=== PATIENT | female | born 1960 | race Hispanic/Latino ===

== ENCOUNTER 2017-11-21 13:51 | Inpatient (IN) | payer BC ==
--- OUTSIDE RECORDS SUMMARY | 2017-11-21 13:53 | XMS REPORT ---
:1960 [facility] Address [address] [place] [address] Care Team Providers Name Role Phone DR MAINOR PAUL Unavailable Unavailable Problems This patient has no known problems. Allergies, Adverse Reactions, Alerts This patient has no known allergies or adverse reactions. Medications This patient has no known medications. Results Test Description Test Time Test Comments Text Results Atomic Results Result Comments U/S KIDNEY (RENAL) 2017-06-24 09:38:23 RENAL ULTRASOUND with DopplerLocation Code: [id number] HISTORY: UNCONTROLLED HTNCOMPARISON: 06/22/17COMMENT: Real-time sonographic images of the kidneys was performed. Wilson scale,color Doppler, and spectral analysis of the aorta and renal arteries wasperformed.Review the resistive indices of the upper, mid, and lower poles of the rightand left renal arteries were all 1.0 which are elevated and worrisome for renalartery stenosis. CTA may be of further benefit.The right kidney measures 8.3 x 4.0 x 4.0cm. The left kidney measures 8.3 x 4.2x 3.9cm. Cortical thickness is somewhat thin on each side. The kidneys areslightly increased in echogenicity. Tiny punctate echogenic foci may representnonobstructing stones without hydronephrosis. Again noted is an 11 x 10 mmechogenic lesion in the inferior pole the left kidney which may represent anangiomyolipoma.Small amount of ascites again seen. Sludge noted within the gallbladder.The bladder is decompressed.IMPRESSION: 1. Findings worrisome for bilateral renal artery stenosis. Somewhat echogenickidneys with tiny nonobstructing stones and possible small angiomyolipomainvolving the inferior pole the left kidney.2. Ascites.3. Mild sludge in the gallbladder. US KIDNEY (RENAL) 2017-06-22 15:39:41 Addendum:Note is made of some free fluid in the right and left upper quadrants of theabdomen. MAMMOGRAM SCREENING CAD 2016-12-03 09:39:53 Exam: Bilateral digital INC G0202 mammogramLocation: [id number]: Routine screening.Comparison: Priors unavailableFINDINGS:No dominant masses or clustered microcalcifications are identified. The breastparenchyma is heterogeneously dense. There are diffuse benign vascular andsecretory calcifications seen. R2 computer aided detection was utilized as an aid for interpreting theseimages.IMPRESSION:1. ACR BI-RADS 2. Benign findings. Recommendation: Routine yearly mammographic follow-up recommended. [employer] AccreditationFDA CertifiedBoard Certified Radiologists(ARRT) Registered Mammography TechnologistsNOTE: 1. A negative report should not delay biopsy if a dominant or clinicallysuspicious mass is present. 4 to 8% of cancers are not identified by x-ray.2. A negative report may reinforce clinical impression.3. Adenosis and dense breasts may obscure an underlying neoplasm.4. False positive results average 6 to 10%.5. Complete assessment of BI-RADS wording:A. Category 0=Needs Additional Imaging Evaluation.B. Category 1=Negative mammogram.C. Category 2=Benign Finding.D. Category 3=Probably Benign Finding - Short Interval Followup Suggested.E. Category 4=Suspicious Abnormality.F. Category 5=Highly Suggestive Of Malignancy.G. Category 6=Known Malignancy. BONE DENSITY 2016-12-03 09:37:50 Bone mineral densityLocation code: [id number] history: Estrogen deficiency, osteoporosis screeningComments: Bone densitometry was performed using the [email or web address] Discovery W DXAscanner.AP spine (L1-L4)BMD: 0.849 g /ccT score: -1.8Z score: -0.7WHO classification: OsteopeniaLeft femoral neck:BMD: 0.551 g /ccT score: -2.7Z score: -1.7WHO classification: OsteoporosisLeft total hipBMD: 0.651 g /ccT score: -2.3Z score: -1.5WHO classification: OsteopeniaRight femoral neckBMD: 0.506 g /ccT score: -3.1Z score: -2.0WHO classification: OsteoporosisRight total hipBMD: 0.642 g /ccT score: -2.4Z score: -1.6WHO classification: OsteopeniaImpression:1. Osteoporosis of the bilateral femoral necks.2. Osteopenia of the lumbar spine.
--- OUTSIDE RECORDS SUMMARY | 2017-11-21 13:53 | XMS REPORT | Clinical Summary ---
:1960 Author Organization [facility] Address [address] [place] [address] Care Team Providers Name Role Phone Perry Dudley DO Primary Care Provider Allergies Active Allergy Reactions Severity Noted Date Comments Penicillins Itching 01/05/2017 Current Medications Prescription Sig. Disp. Refills Start Date End Date Status calcium acetate (PHOSLO) Take 667 mg by Active 667 mg tablet mouth. enalapril (VASOTEC) 5 MG Take 5 mg by mouth. 02/13/2016 Active tablet hydrALAZINE (APRESOLINE) Take 50 mg by Active 50 MG tablet mouth. insulin NPH and regular Inject 10 Units 02/13/2016 Active human (HumuLIN 70/30) 100 under the skin. unit/mL (70-30) injection pantoprazole (PROTONIX) Take 40 mg by 02/13/2016 Active 40 MG EC tablet mouth. risperiDONE (RisperDAL) Take 0.5 mg by 02/13/2016 Active 0.5 MG tablet mouth. risperiDONE (RisperDAL) 2 Take 2 mg by mouth. 02/13/2016 Active MG tablet sertraline (ZOLOFT) 100 Take 100 mg by 02/13/2016 Active MG tablet mouth. simethicone (MYLICON) 80 Chew 80 mg. 02/13/2016 Active MG chewable tablet doxazosin (CARDURA) 1 MG Take 1 mg by mouth Active tablet nightly. METOPROLOL Take by mouth. Active ABAD-HYDROCHLOROTHIAZ ORAL clonIDINE (CATAPRES-TTS) Place 1 patch on Active 0.1 mg/24 hr the skin once a week. levoFLOXacin (QUIXIN) 0.5 1 drop every 4 Active % ophthalmic solution (four) hours. apixaban (ELIQUIS) 2.5 mg Take by mouth 2 Active tablet (two) times a day. sodium polystyrene Take 15 g by mouth Active sulfonate (KAYEXALATE) once. suspension SODIUM POLYSTYRENE Take by mouth. Active SULFONATE (KIONEX ORAL) OMEPRAZOLE ORAL Take 1 tablet by Active mouth daily. AMLODIPINE BESYLATE Take by mouth. Active (AMLODIPINE ORAL) Active Problems Problem Noted Date ESRD (end stage renal disease) 2014 MWF 01/05/2017 Last Assessment & Plan: N. new dialysis access planning dialyzing thru L TDC. Patient with access needs. We gave the patient our kidney failure information sheet and discussed with them in general transplant vs. PD vs. hemodialysis. We discussed catheters vs. grafts vs. fistula s and used the informational posters to better explain the differences. We explained our general preference for fistulas because of decreased infections and increased longevity. We discussed operative complications including bleeding, thrombosis, failure of the access, swelling , steal syndrome, and need for additional procedures. Plan for bilateral venograms. Vein mapping reviewed has options of both arms. DM (diabetes mellitus) 01/05/2017 HTN (hypertension) 01/05/2017 Encounters Date Type Specialty Care Team Description 02/04/2017 Hospital Encounter Radiology Kiki Lynch No Sabrina Barboza MD 01/05/2017 Office Visit Cardiovascular Kiki Lynch ESRD (end stage renal MD Jabari disease) (Primary Dx) 01/05/2017 Orders Only Cardiovascular Kiki Lynch MD after 11/20/2016 Family History Medical History Relation Name Comments Diabetes Brother Hypertension Brother Diabetes Mother Hypertension Mother Diabetes Sister Relation Name Status Comments Brother Alive Father Mother Alive Sister Social History Tobacco Use Types Packs/Day Years Used Date Never Smoker Alcohol Use Drinks/Week oz/Week Comments No Sex Assigned at Date Recorded Not on file Last Filed Vital Signs Vital Sign Reading Time Taken Blood Pressure 196/90 01/05/2017 11:47 AM CDT Pulse 79 01/05/2017 11:47 AM CDT Temperature 36.6 C (97.8 F) 01/05/2017 11:45 AM CDT Respiratory Rate 16 01/05/2017 11:45 AM CDT Oxygen Saturation - - Inhaled Oxygen Concentration - - Weight 64 kg (141 lb) 01/05/2017 11:45 AM CDT Height 147.3 cm (4' 10") 01/05/2017 11:45 AM CDT Body Mass Index 29.47 01/05/2017 11:45 AM CDT Plan of Treatment Health Maintenance Due Date Last Done Comments FOOT EXAM 1971 OPHTHALMOLOGY EXAM 1971 URINE MICROALBUMIN 1971 PAP SMEAR 1982 COLONOSCOPY 2011 MAMMOGRAM 2011 INFLUENZA VACCINE 03/16/2018 Results PT and PTT (01/05/2017 1:23 PM) Component Value Ref Range PTT 30 22 - 34 sec Comment: This test has not been validated for monitoring unfractionated heparin therapy. For testing that is validated for this type of therapy, please refer to the Heparin Anti-Xa assay (test code 59797). For additional information, please refer to http://education.Bonfire.com/faq/FTQ533 (This link is being provided for informational/educational purposes only.) INR 1.0 Comment: Reference Range 0.9-1.1 Moderate-intensity Warfarin Therapy 2.0-3.0 Higher-intensity Warfarin Therapy 3.0-4.0 Prothrombin time 10.8 9.0 - 11.5 sec Specimen Performing Laboratory [facility] Narrative FASTING: UNKNOWN CBC with platelet and differential (01/05/2017 1:23 PM) Component Value Ref Range WBC 9.2 3.8 - 10.8 Thousand/uL RBC 4.01 3.80 - 5.10 Million/uL HGB 11.7 11.7 - 15.5 g/dL HCT 37.1 35.0 - 45.0 % MCV 92.5 80.0 - 100.0 fL MCH 29.2 27.0 - 33.0 pg MCHC 31.6 (L) 32.0 - 36.0 g/dL RDW 17.1 (H) 11.0 - 15.0 % Platelet count 267 140 - 400 Thousand/uL MPV 10.0 7.5 - 12.5 fL Neutrophils, absolute 6,955 1,500 - 7,800 cells/uL Lymphocytes, absolute 1,490 850 - 3,900 cells/uL Monocytes, absolute 506 200 - 950 cells/uL Eosinophils, absolute 156 15 - 500 cells/uL Basophils, absolute 92 0 - 200 cells/uL Neutrophils 75.6 % Lymphocytes 16.2 % Monocytes 5.5 % Eosinophils 1.7 % Basophils + RC 1.0 % Specimen Performing Laboratory [facility] Narrative FASTING: UNKNOWN Basic metabolic panel (01/05/2017 1:23 PM) Component Value Ref Range Glucose 285 (H) 65 - 99 mg/dL Comment: For someone without known diabetes, a glucose value >125 mg/dL indicates that they may have diabetes and this should be confirmed with a follow-up test. Fasting reference interval BUN, whole blood 32 (H) 7 - 25 mg/dL Creatinine 4.21 (H) 0.50 - 1.05 mg/dL Comment: For patients >49 years of age, the reference limit for Creatinine is approximately 13% higher for people identified as -[place]. EGFR Non-Afr. [place] 11 (L) > OR=60 mL/min/1.73m2 EGFR 13 (L) > OR=60 mL/min/1.73m2 BUN/creatinine ratio 8 6 - 22 (calc) Sodium 136 135 - 146 mmol/L Potassium 5.0 3.5 - 5.3 mmol/L Chloride 93 (L) 98 - 110 mmol/L CO2 32 (H) 20 - 31 mmol/L Calcium 9.3 8.6 - 10.4 mg/dL Specimen Performing Laboratory [facility] Narrative FASTING: UNKNOWN PV vein mapping upper extremity (01/05/2017 11:47 AM) Specimen Performing Laboratory [facility] [address] [place] [address] Narrative [facility] Upper Extremity Venous Duplex Report [id number] [place], [place] Pat.Name:UZMA FABIAN Pat.ID:[id number] .Date: 01/05/2017 Refer.MD:KIKI LYNCH MD Exam Time: 10:48:00 AM Study Type:UE Venous DOBAge:1960,56YSex: FEMALE Sonogrphr: Carmel Aranda RN, RVT TapeVol: EC, CPT - 4: G0365 Echo Event ID:[id number] Order ID:[id number] Reason for Study:Bilateral upper extremity vein mapping. Pt is right handed. Currently has left tunneled dialysis catheter. Race:Z SUMMARY: DUPLEX SCAN OBSERVATIONS Right Left IJPatent Small, Patent SubclavianPatent Patent AxillaryPatent Not seen-TDC BrachialPatent Patent Diameter Cephalic, arm Patent Patent Cephalic, forearm Patent Patent Basilic, armPatent Patent Basilic, forearm Patent Patent Brachial artery Pressure 193/28644/95 PSV cm/sec 75960 Radial artery PSV cm/sec 8698 Ulnar artery PSV cm/sec 8779 RIGHT:There is normal compressibility and no evidence of echogenic material noted within the lumen of the visualized veins. The basilic vein joins the brachial vein just above the mid upper arm. Colorflow and Doppler signals are normal. The andrea of the radial and ulnar arteries arebrightly echogenic. There are two areas noted in the thyroid gland; one contains soft echoes and measures 0.62 x 0.79 cm and the second 0.76 x 0.80 cm. LEFT: There is normal compressibility and no evidence of echogenic material noted within the lumen of the visualized veins, however, the internal jugular vein is small in caliber which may suggest prior DVT. The axillary vein is not seen due to presence of TDC with dressing. Colorflow and Doppler signals are normal. The andrea of the radial and ulnar arteries arebrightly echogenic. PHYSICIAN INTERPRETATION 1.No evidence of venous thrombosis, bilateral upper extremities, however, the left internal jugular vein is small in caliber. 2.The left axillary vein is not seen due to TDC with dressing. 3.The basilic vein joins the brachial vein just above the mid upper arm, bilaterally. 4.The andrea of the radial and ulnar arteries arebrightly echogenic, bilaterally. 5.There are two areas noted in the right lobe of the thyroid; one contains soft echoes and measures 0.62 x 0.79 cm and the second 0.76 x 0.80 cm. 6.See diagram for vein measurements. MEASUREMENTS: UEVEINS Left Cephalic Forearm Mid Cephalic Forear 0.2 cm Right Cephalic Forearm Mid Cephalic Forear0.23 cm Left Cephalic Upper Arm Prox Cephalic Upper 0.34 cm Right Cephalic Upper Arm Prox Cephalic Upper 0.33 cm Left Cephalic Antecubital Cephalic Antecu0.51 cm Right Cephalic Antecubital Cephalic Antecu0.36 cm Left Cephalic Forearm Prox Cephalic Forear0.25 cm Right Cephalic Forearm Prox Cephalic Forear0.22 cm Left Radial Artery Radial Artery A 0.2 cm Right Radial Artery Radial Artery A0.21 cm Left Median Antecubital Median Antecubi0.22 cm Right Median Antecubital Median Antecubi0.23 cm Left Basilic Antecubital Basilic Antecub0.21 cm Right Basilic Antecubital Fossa Basilic Antecub0.23 cm Left Basilic Forearm Prox Basilic Forearm0.17 cm Right Basilic Forearm Prox Basilic Forearm0.15 cm Left Cephalic Wrist Cephalic Wrist 0.19 cm Right Cephalic Wrist Cephalic Wrist 0.18 cm Left Basilic Upper Arm Mid Basilic Upper A 0.3 cm Right Basilic Upper Arm Mid Basilic Upper A0.32 cm Left Cephalic Upper Arm Mid Cephalic Upper 0.32 cm Right Cephalic Upper Arm Mid Cephalic Upper 0.37 cm Left Cephalic Upper Arm Dist Cephalic Upper 0.37 cm Right Cephalic Upper Arm Dist Cephalic Upper 0.36 cm Left Basilic Upper Arm Dist Basilic Upper A0.27 cm Right Basilic Upper Arm Dist Basilic Upper A0.29 cm Left Ulnar Artery Ulnar Artery AP0.16 cm Right Ulnar Artery Ulnar Artery AP0.18 cm Left Basilic Wrist Basilic Wrist A0.13 cm Right Basilic Wrist Basilic Wrist A0.12 cm Left Brachial Artery Brachial Artery 0.434 cm Right Brachial Artery Brachial Artery 0.475 cm Left Basilic Forearm Mid Basilic Forearm0.14 cm Right Basilic Forearm Mid Basilic Forearm0.15 cm Left Basilic Upper Arm Prox Basilic Upper A0.36 cm Right Basilic Upper Arm Prox Basilic Upper A0.28 cm Right Brachial Vein Antecube Brachial Vein A 2.3 cm Left Brachial Vein Antecube Brachial Vein A 2.2 cm GRAFT Radial A Dist Radial A Dist P86 cm/s Ulnar A Dist 1 Ulnar A Dist 1 79 cm/s Ulnar Dist Ulnar Dist PSV87 cm/s Brachial A Dist Brachial A Dist92 cm/s Signed 01/06/2017 07:59 AM Dusty López MD, RPVI Procedure Note Interface, Radiology Results In - 01/06/2017 7:59 AM CDT [facility] Upper Extremity Venous Duplex Report [id number] [place] [address] Pat.Name: UZMA FABIAN Pat.ID: [id number] .Date: 01/05/2017 Refer.MD: KIKI LYNCH MD Exam Time: 10:48:00 AM Study Type:UE Venous Age: 13 1960,56Y Sex: FEMALE Sonogrphr: Carmel Aranda RN, RVT Tape Vol: EC, CPT - 4: G0365 Echo Event ID:[id number] Order ID: [id number] Reason for Study:Bilateral upper extremity vein mapping. Pt is right handed. Currently has left tunneled dialysis catheter. Race: Z SUMMARY: DUPLEX SCAN OBSERVATIONS Right Left IJ Patent Small, Patent Subclavian Patent Patent Axillary Patent Not seen-TDC Brachial Patent Patent Diameter Cephalic, arm Patent Patent Cephalic, forearm Patent Patent Basilic, arm Patent Patent Basilic, forearm Patent Patent Brachial artery Pressure 193/95 201/95 PSV cm/sec 92 103 Radial artery PSV cm/sec 86 98 Ulnar artery PSV cm/sec 87 79 RIGHT: There is normal compressibility and no evidence of echogenic material noted within the lumen of the visualized veins. The basilic vein joins the brachial vein just above the mid upper arm. Colorflow and Doppler signals are normal. The andrea of the radial and ulnar arteries are brightly echogenic. There are two areas noted in the thyroid gland; one contains soft echoes and measures 0.62 x 0.79 cm and the second 0.76 x 0.80 cm. LEFT: There is normal compressibility and no evidence of echogenic material noted within the lumen of the visualized veins, however, the internal jugular vein is small in caliber which may suggest prior DVT. The axillary vein is not seen due to presence of TDC with dressing. Colorflow and Doppler signals are normal. The andrea of the radial and ulnar arteries are brightly echogenic. PHYSICIAN INTERPRETATION 1. No evidence of venous thrombosis, bilateral upper extremities, however, the left internal jugular vein is small in caliber. 2. The left axillary vein is not seen due to TDC with dressing. 3. The basilic vein joins the brachial vein just above the mid upper arm, bilaterally. 4. The andrea of the radial and ulnar arteries are brightly echogenic, bilaterally. 5. There are two areas noted in the right lobe of the thyroid; one contains soft echoes and measures 0.62 x 0.79 cm and the second 0.76 x 0.80 cm. 6. See diagram for vein measurements. MEASUREMENTS: UEVEINS Left Cephalic Forearm Mid Cephalic Forear 0.2 cm Right Cephalic Forearm Mid Cephalic Forear 0.23 cm Left Cephalic Upper Arm Prox Cephalic Upper 0.34 cm Right Cephalic Upper Arm Prox Cephalic Upper 0.33 cm Left Cephalic Antecubital Cephalic Antecu 0.51 cm Right Cephalic Antecubital Cephalic Antecu 0.36 cm Left Cephalic Forearm Prox Cephalic Forear 0.25 cm Right Cephalic Forearm Prox Cephalic Forear 0.22 cm Left Radial Artery Radial Artery A 0.2 cm Right Radial Artery Radial Artery A 0.21 cm Left Median Antecubital Median Antecubi 0.22 cm Right Median Antecubital Median Antecubi 0.23 cm Left Basilic Antecubital Basilic Antecub 0.21 cm Right Basilic Antecubital Fossa Basilic Antecub 0.23 cm Left Basilic Forearm Prox Basilic Forearm 0.17 cm Right Basilic Forearm Prox Basilic Forearm 0.15 cm Left Cephalic Wrist Cephalic Wrist 0.19 cm Right Cephalic Wrist Cephalic Wrist 0.18 cm Left Basilic Upper Arm Mid Basilic Upper A 0.3 cm Right Basilic Upper Arm Mid Basilic Upper A 0.32 cm Left Cephalic Upper Arm Mid Cephalic Upper 0.32 cm Right Cephalic Upper Arm Mid Cephalic Upper 0.37 cm Left Cephalic Upper Arm Dist Cephalic Upper 0.37 cm Right Cephalic Upper Arm Dist Cephalic Upper 0.36 cm Left Basilic Upper Arm Dist Basilic Upper A 0.27 cm Right Basilic Upper Arm Dist Basilic Upper A 0.29 cm Left Ulnar Artery Ulnar Artery AP 0.16 cm Right Ulnar Artery Ulnar Artery AP 0.18 cm Left Basilic Wrist Basilic Wrist A 0.13 cm Right Basilic Wrist Basilic Wrist A 0.12 cm Left Brachial Artery Brachial Artery 0.434 cm Right Brachial Artery Brachial Artery 0.475 cm Left Basilic Forearm Mid Basilic Forearm 0.14 cm Right Basilic Forearm Mid Basilic Forearm 0.15 cm Left Basilic Upper Arm Prox Basilic Upper A 0.36 cm Right Basilic Upper Arm Prox Basilic Upper A 0.28 cm Right Brachial Vein Antecube Brachial Vein A 2.3 cm Left Brachial Vein Antecube Brachial Vein A 2.2 cm GRAFT Radial A Dist Radial A Dist P 86 cm/s Ulnar A Dist 1 Ulnar A Dist 1 79 cm/s Ulnar Dist Ulnar Dist PSV 87 cm/s Brachial A Dist Brachial A Dist 92 cm/s Signed 01/06/2017 07:59 AM Dusty López MD, RPVI after 11/20/2016 Insurance Payer Benefit Plan / Group Subscriber ID Type Phone Address [employer]BS EXCHANGE BLUE ADVANTAGE HMO EXCH xxxxxxxxxxxx Exchange CAROLYN Personal/Famil Self 1960 Home: [address] [phone] [place] [address]
[2017-11-21 15:19] LABS: Absolute Lymphocytes (CBC) 0.7 K/uL (0.7-4.9); Absolute Monocytes 0.7 K/uL (0.1-1.3); Absolute Neutrophil 25.1 K/uL (1.8-8.0); Basophils % 0.3 % (0-1.3); Lymphocytes % 2.8 % (15.3-44.8); MCH 27.6 pg (27.0-35.0); MCV 87.1 fL (80-100); MPV 7.5 fL (7.6-11.3); Monocytes % 2.8 % (3.3-12.3); RBC Red Blood Cell Count 4.94 M/uL (3.86-4.86)
[2017-11-21 15:30] LABS: Potassium 5.2 mEq/L (3.6-5.0)
[2017-11-21] MEDS ORDERED: ONDANSETRON 4 MG/2 ML VIAL ONE ×2 (15:34→18:29)
[2017-11-21] MEDS ORDERED: NA CHLORIDE 0.9% 250 ML ONE (15:35)
[2017-11-21 15:36] LABS: Albumin 3.5 g/dL (3.2-5.5); Bilirubin Direct 0.3 mg/dL (0-0.2); Protein, Total 8.5 g/dL (6.0-8.3)
[2017-11-21 15:48] LABS: Platelet Estimate ADEQ; Platelets, Giant PRESENT
[2017-11-21 15:49] LABS: Blood Morphology Comment NOT SEEN (NOT SEEN)
--- NOTE | 2017-11-21 17:42 | RAD REPORT ---
EXAM DESCRIPTION: CT - Abdomen Pelvis Wo Contrast - 11/21/2017 5:14 pm CLINICAL HISTORY: Abdominal pain with vomiting for 2 days COMPARISON: August 2017 TECHNIQUE: Computed axial tomography of the abdomen and pelvis was obtained. IV was not requested. O ral contrast was given. Coronal reconstructions performed. All CT scans are performed using dose optimization technique as appropriate and may include automated exposure control or mA/KV adjustment according to patient size. FINDINGS: The evaluation of solid organs and vessels is limited secondary to the lack of contrast a dministration. The liver, spleen, pancreas, and adrenals appear grossly normal. Renal arterial calcifications are pr esent. A small hemorrhagic/proteinaceous cyst present within the left kidney. Gallbladder sludge is present. The gallbladder wall is thickened. The gallbladder is mildly distended . The colonic wall is mildly thickened. . There is no evidence of diverticulitis. A small to moderate amount of ascites is present. IMPRESSION: Small to moderate amount of ascites Mild colonic wall thickening could be secondary to hypoalbuminemia or cholecystitis Gallbladder sludge. The gallbladder is mildly distended. Gallbladder wall thickening may be secondary to hypoalbuminemia or cholecystitis
--- NOTE | 2017-11-21 18:01 | EDPHYS ---
Physician Documentation [facility] Name: Jessica Roca Age: 57 yrs Sex: Female : 1960 Arrival Date: 11/21/2017 Time: 13:53 Bed 7 Private MD: ED Physician Nick Knox HPI: 11/21 16:36 This 57 yrs old Female presents to ER via Wheelchair with complaints of rn nausea/vomiting/diarrhea. 16:36 The patient presents to the emergency department with nausea, vomiting, diarrhea. rn Onset: The symptoms/episode began/occurred 3 day(s) ago. Possible causes: unknown. Severity of symptoms: At their worst the symptoms were moderate in the emergency department the symptoms are unchanged. The patient has not experienced similar symptoms in the past. Reports nausea/vomiting/diarrhea, mild left sided abd pain, for 3 days, no blood or dark stool, no fever, last dialysis 2 days ago. . Historical: - Allergies: 14:17 PENICILLINS; ph - Home Meds: 14:17 amlodipine 10 mg tab 1 tab once daily [Active]; calcium acetate 667 mg Oral cap ph [Active]; carvedilol 25 mg Oral tab 1 tab 2 times per day [Active]; clonidine HCl 0.1 mg Oral tab 2 tabs 3 times per day [Active]; doxazosin 2 mg Oral tab 1 tab once daily [Active]; hydralazine 25 mg Oral tab TID [Active]; lisinopril 40 mg Oral tab 1 tab once daily [Active]; losartan 50 mg Oral tab 1 tab once daily [Active]; Sensipar Oral [Active]; sertraline 100 mg Oral tab 1 tab once daily [Active]; - PMHx: 14:17 Depression; Diabetes - IDDM; hemodialysis; Hypertension; Renal Disease; ph - Immunization history:: Adult Immunizations unknown. - Social history:: Smoking status: Patient/guardian denies using tobacco. - Family history:: not pertinent. - Hospitalizations: : No recent hospitalization is reported. ROS: 16:36 Constitutional: Negative for fever, chills, and weight loss, Eyes: Negative for injury, rn pain, redness, and discharge, Neck: Negative for injury, pain, and swelling, Cardiovascular: Negative for chest pain, palpitations, and edema, Respiratory: Negative for shortness of breath, cough, wheezing, and pleuritic chest pain, Abdomen/GI: Negative for constipation Back: Negative for injury and pain, MS/Extremity: Negative for injury and deformity, Skin: Negative for injury, rash, and discoloration, Neuro: Negative for headache, weakness, numbness, tingling, and seizure. Exam: 16:36 Constitutional: This is a well developed, well nourished patient who is awake, alert, rn and in no acute distress. Head/Face: Normocephalic, atraumatic. Eyes: Pupils equal round and reactive to light, extra-ocular motions intact. Lids and lashes normal. Conjunctiva and sclera are non-icteric and not injected. Cornea within normal limits. Periorbital areas with no swelling, redness, or edema. ENT: dry MM Neck: Trachea midline, no thyromegaly or masses palpated, and no cervical lymphadenopathy. Supple, full range of motion without nuchal rigidity, or vertebral point tenderness. No Meningismus. Cardiovascular: tachycardic, regular, no murmur Respiratory: Lungs have equal breath sounds bilaterally, clear to auscultation and percussion. No rales, rhonchi or wheezes noted. No increased work of breathing, no retractions or nasal flaring. Abdomen/GI: soft, mild left upper and lower abd tenderness, + epigastric tenderness, no rebound MS/ Extremity: Pulses equal, no cyanosis. Neurovascular intact. Full, normal range of motion. Equal circumference. Neuro: Awake and alert, GCS 15, oriented to person, place, time, and situation. Cranial nerves II-XII grossly intact. Motor strength 5/5 in all extremities. Sensory grossly intact. Cerebellar exam normal. Normal gait. Vital Signs: 14:15 BP 143 / 67; Pulse 101; Resp 18; Temp 98.4; Pulse Ox 99% on R/A; ph 15:00 BP 148 / 65; Pulse 100; Resp 17; Pulse Ox 100% on R/A; hb 16:22 BP 155 / 62; Pulse 103; Resp 18; Pulse Ox 99% on R/A; hb 17:15 BP 156 / 66; Pulse 100; Resp 16; Pulse Ox 100% on R/A; hb 18:15 BP 152 / 68; Pulse 98; Resp 15; Pulse Ox 100% on R/A; hb 18:59 BP 150 / 68; Pulse 105; Resp 16; Pulse Ox 95% ; hb 19:53 BP 136 / 81; Pulse 109; Resp 16; Pulse Ox 95% ; bp MDM: 14:19 Patient medically screened. rn 17:57 ED course: Pt with clinical signs of colitis, more left sided symptoms, CT shows rn colitis and possible gallbladder wall thickening, notified Dr. Kennedy for admission, abx started, and consulted Dr. Page \T\ [id number] regarding patient's condition. Pt NPO. Gallbladder wall thickening may be due to ascites or preexisting liver problems. Will evaluate. . 11/21 14:33 Order name: Basic Metabolic Panel; Complete Time: 15:49 rn 11/21 14:33 Order name: CBC with Diff; Complete Time: 15:49 rn 11/21 14:33 Order name: Hepatic Function; Complete Time: 15:49 rn 11/21 14:33 Order name: Lipase; Complete Time: 15:49 rn 11/21 15:48 Order name: Manual Differential; Complete Time: 15:49 EDPA 11/21 15:28 Order name: Abdomen EDPA 11/21 18:12 Order name: CBC without Diff EDPA 11/21 18:12 Order name: Comprehensive Metabolic Panel EDPA 11/21 18:12 Order name: Chest Single View EDPA 11/21 18:12 Order name: Chest Single View EDPA 11/21 18:13 Order name: Clostridium difficile DNA EDPA 11/21 14:33 Order name: IV Saline Lock; Complete Time: 15:23 rn 11/21 14:33 Order name: Labs collected and sent; Complete Time: 15:23 rn 11/21 18:03 Order name: CONS Physician Consult EDPA 11/21 18:03 Order name: NPO EDPA Administered Medications: 15:15 Drug: Zofran 4 mg Route: IVP; Site: right antecubital; hb 16:00 Follow up: Response: No adverse reaction hb 15:15 Drug: NS 0.9% 250 ml Route: IV; Rate: 1 bolus; Site: right antecubital; hb 15:45 Follow up: Response: No adverse reaction; IV Status: Completed infusion hb 18:17 Drug: Zofran 4 mg Route: IVP; Site: right antecubital; hb 18:32 Follow up: Response: No adverse reaction hb 18:18 Drug: Rocephin - (cefTRIAXone) 1 grams Route: IVPB; Infused Over: 30 mins; Site: right hb antecubital; 18:32 Follow up: Response: No adverse reaction; IV Status: Completed infusion hb 18:18 Drug: Flagyl 500 mg Volume: 100 ml; Route: IVPB; Rate: 200 ml/hr; Infused Over: 30 hb mins; Site: right antecubital; 19:07 Follow up: IV Status: Completed infusion bp Disposition: 11/21/17 18:00 Hospitalization ordered by Del Kennedy for Inpatient Admission. Preliminary diagnosis are End stage renal disease, Ascites, Colitis, Possible cholecystitis. - Bed requested for Telemetry/MedSurg (Inpatient). - Status is Inpatient Admission. bp - Condition is Stable. - Problem is new. - Symptoms have improved. UTI on Admission? No Signatures: Dispatcher [employer] EDMS Krysta Madera Roman, MD MD rn Hall, Patricia, RN RN Daja Jackson RN RN vEelio Hinton RN RN bp Corrections: (The following items were deleted from the chart) 15:28 14:34 Abdomen Pelvis W Con+CT.RAD.BRZ ordered. EDMS EDMS 15:48 15:27 CBC Smear Scan ordered. EDMS EDMS
--- NOTE | 2017-11-21 18:01 | ER ---
Nurse's Notes [facility] Name: Jessica Roca Age: 57 yrs Sex: Female : 1960 Arrival Date: 11/21/2017 Time: 13:53 Bed 7 Private MD: Diagnosis: End stage renal disease;Ascites;Colitis;Possible cholecystitis Presentation: 11/21 14:13 Presenting complaint: N/V/D with abdominal pain since Wednesday. Transition of care: ph patient was not received from another setting of care. Onset of symptoms was November 21, 2017. Care prior to arrival: None. 14:13 Method Of Arrival: Wheelchair ph 14:13 Acuity: MELL 3 ph Triage Assessment: 19:00 General: Appears distressed, uncomfortable, Behavior is appropriate for age. Pain: bp Complains of pain in abdomen. Historical: - Allergies: 14:17 PENICILLINS; ph - Home Meds: 14:17 amlodipine 10 mg tab 1 tab once daily [Active]; calcium acetate 667 mg Oral cap ph [Active]; carvedilol 25 mg Oral tab 1 tab 2 times per day [Active]; clonidine HCl 0.1 mg Oral tab 2 tabs 3 times per day [Active]; doxazosin 2 mg Oral tab 1 tab once daily [Active]; hydralazine 25 mg Oral tab TID [Active]; lisinopril 40 mg Oral tab 1 tab once daily [Active]; losartan 50 mg Oral tab 1 tab once daily [Active]; Sensipar Oral [Active]; sertraline 100 mg Oral tab 1 tab once daily [Active]; - PMHx: 14:17 Depression; Diabetes - IDDM; hemodialysis; Hypertension; Renal Disease; ph - Immunization history:: Adult Immunizations unknown. - Social history:: Smoking status: Patient/guardian denies using tobacco. - Family history:: not pertinent. - Hospitalizations: : No recent hospitalization is reported. Screenin:00 Abuse screen: Denies threats or abuse. Denies injuries from another. Nutritional hb screening: No deficits noted. Tuberculosis screening: No symptoms or risk factors identified. Fall Risk Total Levy Fall Scale indicates Low Risk Score (25-44 pts). Fall prevention measures have been instituted. Side Rails Up X 2 Frequent Obs/Assesments occuring Family Present and informed to notify staff if they need to leave bedside As available Patient and Family Educated on Fall Prevention Program and strategies. Assessment: 14:48 Reassessment: Pt cleaned of small loose stool incontinence. Barrier cream applied. Skin ss is very irritated and reddened to brief area. Pt is grateful for care received. Warm blanket given for comfort. 15:20 Reassessment: Patient appears in no apparent distress at this time. No changes from hb previously documented assessment. Patient and/or family updated on plan of care and expected duration. Pain level reassessed. Patient is alert, oriented x 3, equal unlabored respirations, skin warm/dry/pink. 16:15 Reassessment: Patient appears in no apparent distress at this time. No changes from hb previously documented assessment. Patient and/or family updated on plan of care and expected duration. Pain level reassessed. Patient is alert, oriented x 3, equal unlabored respirations, skin warm/dry/pink. 17:15 Reassessment: Patient appears in no apparent distress at this time. No changes from hb previously documented assessment. Patient and/or family updated on plan of care and expected duration. Pain level reassessed. Patient is alert, oriented x 3, equal unlabored respirations, skin warm/dry/pink. 18:21 Reassessment: Pt vomit x 1, Dr. Knox notified, Zofran administered as ordered. hb Admission ordered, awaiting room assignment at this time. 18:58 Reassessment: RECD REPORT FROM DAJA BRIONES. 57YO HF P/W ABD PAIN AND N/V/D. ADMIT IN bp PROCESS FOR COLITIS. Vital Signs: 14:15 BP 143 / 67; Pulse 101; Resp 18; Temp 98.4; Pulse Ox 99% on R/A; ph 15:00 BP 148 / 65; Pulse 100; Resp 17; Pulse Ox 100% on R/A; hb 16:22 BP 155 / 62; Pulse 103; Resp 18; Pulse Ox 99% on R/A; hb 17:15 BP 156 / 66; Pulse 100; Resp 16; Pulse Ox 100% on R/A; hb 18:15 BP 152 / 68; Pulse 98; Resp 15; Pulse Ox 100% on R/A; hb 18:59 BP 150 / 68; Pulse 105; Resp 16; Pulse Ox 95% ; hb 19:53 BP 136 / 81; Pulse 109; Resp 16; Pulse Ox 95% ; bp ED Course: 13:53 Patient arrived in ED. as 14:15 Triage completed. ph 14:17 Arm band placed on. ph 14:19 Nick Knox MD is Attending Physician. rn 14:30 Patient has correct armband on for positive identification. Placed in gown. Bed in low hb position. Call light in reach. Side rails up X2. 15:02 Missed attempt(s): 20 gauge in right antecubital area. Bleeding controlled, band aid hb applied, catheter tip intact. 15:05 Missed attempt(s): 20 gauge in right antecubital area. Bleeding controlled, band aid hb applied, catheter tip intact. 15:10 Inserted saline lock: 20 gauge in right antecubital area, using aseptic technique. hb Blood collected. 15:18 Daja Jackson, RN is Primary Nurse. hb 17:14 Abdomen In Process Unspecified. EDMS 17:14 CT completed. Patient moved to CT via stretcher. Patient moved back from CT. cw1 17:59 Del Kennedy MD is Hospitalizing Provider. rn 19:53 No provider procedures requiring assistance completed. Patient admitted, IV remains in bp place. Administered Medications: 15:15 Drug: Zofran 4 mg Route: IVP; Site: right antecubital; hb 16:00 Follow up: Response: No adverse reaction hb 15:15 Drug: NS 0.9% 250 ml Route: IV; Rate: 1 bolus; Site: right antecubital; hb 15:45 Follow up: Response: No adverse reaction; IV Status: Completed infusion hb 18:17 Drug: Zofran 4 mg Route: IVP; Site: right antecubital; hb 18:32 Follow up: Response: No adverse reaction hb 18:18 Drug: Rocephin - (cefTRIAXone) 1 grams Route: IVPB; Infused Over: 30 mins; Site: right hb antecubital; 18:32 Follow up: Response: No adverse reaction; IV Status: Completed infusion hb 18:18 Drug: Flagyl 500 mg Volume: 100 ml; Route: IVPB; Rate: 200 ml/hr; Infused Over: 30 hb mins; Site: right antecubital; 19:07 Follow up: IV Status: Completed infusion bp Outcome: 18:00 Decision to Hospitalize by Provider. rn 19:51 Admitted to [facility] accompanied by tech, via stretcher, room 205, with chart, Report bp called to EUNICE BRIONES 19:51 Condition: stable 19:51 Instructed on the need for admit. 20:05 Patient left the ED. bp Signatures: Dispatcher [employer] Susan Finnegan Roman, MD MD rn Smirch, Shelby, RN RN ss Sue Morton cw1 Luna Rausch RN RN Daja Jackson RN RN Evelio Hinton RN RN bp Corrections: (The following items were deleted from the chart) 19:01 18:58 Reassessment: RECD REPORT FROM DAJA BRIONES. 57YO HF P/W ABD PAIN AND N/V/D. ADMIT bp IN PROCESS FOR COLITIS hb
--- NOTE | 2017-11-21 18:13 | P.HP ---
Certification for Inpatient Patient admitted to: Inpatient With expected LOS: >2 Midnights Practitioner: I am a practitioner with admitting privileges, knowledge of patient current condition, hospital course, and medical plan of care. Services: Services provided to patient in accordance with Admission requirements found in Title 42 Section 412.3 of the Code of Federal Regulations Patient History Date of Service: 11/21/17 Reason for admission: Possible cholecystitis History of Present Illness: Patient is 57 years of age Kyrgyz-speaking only on dialysis admitted with a 3 day history of nausea vomiting diarrhea abdominal discomfort patient was diagnosed with possible cholecystitis on the CT scan elevated white count complains of some abdominal tenderness Allergies Penicillins Allergy (Verified 10/07/17 19:29) vomiting and swelling Home Medications: Doxazosin [Cardura*] 2 mg PO DAILY #30 tab 10/13/16 Sertraline [Zoloft*] 100 mg PO DAILY 12/07/16 Calcium Acetate 667 mg PO TIDWM 04/05/17 Cinacalcet HCl [Sensipar*] 30 mg PO DAILY 10/08/17 Folic Acid/Vitamin B Comp W-C [Nephro-Violet Tablet] 0.8 mg PO DAILY 10/08/17 Hydralazine [Apresoline*] 50 mg PO Q6H 10/08/17 Insulin Aspart [Novolog] 3 unit SQ TIDWM 10/08/17 Lactobacillus Acidophilus [Acidophilus] 1 each PO DAILY 10/08/17 Pantoprazole [Protonix Tab*] 40 mg PO BID 10/08/17 Simethicone [Mylicon*] 80 mg PO PCHS 10/08/17 Amlodipine [Norvasc*] 10 mg PO DAILY #30 tab 10/22/17 Calcium Acetate [Phoslo*] 667 mg PO TIDWM cap 10/22/17 Epoetin [Procrit*] 10,000 unit IV EVERY HD vial 10/22/17 Lisinopril [Prinivil*] 20 mg PO BID #60 tab 10/22/17 Insulin Detemir [Levemir*] 2 units SQ BEDTIME #10 ml 10/29/17 Insulin Lispro [Humalog*] 3 unit SQ TIDWM #3 ml 10/29/17 Vitamin B Complex [Vitamin B Complex*] 1 cap PO DAILY #30 cap 10/29/17 - Past Medical/Surgical History Diabetic: Yes -: Hypertension -: End-stage renal disease, dialysis M,W,F -: Diabetes mellitus -: Cataracts -: cholestatic jaundice -: Diabetic gastroparesis -: GERD -: Obesity -: Atrial fibrillation -: pneumonia, pleural effusion -: anemia -: UTI -: Tubal ligation -: Eye surgery -: tessio cath placement Psychosocial/ Personal History: The patient is to 40 years, she has 6 children. She does not work. - Family History Father -: Hypertension, Diabetes Mother -: Hypertension, Diabetes, Cancer Brother -: Hypertension, Diabetes Sister -: Heart disease, Diabetes - Social History Alcohol use: No CD- Drugs: No Caffeine use: No Review of Systems is unable to be obtained Physical Examination - Vital Signs Temperature: 98.4 F Blood Pressure: 143/67 Pulse: 101 Respirations: 18 Pulse Ox (%): 99 - Physical Exam General: Alert, Cooperative HEENT: Atraumatic Neck: Supple Respiratory: Clear to auscultation bilaterally, Normal air movement Cardiovascular: No edema, Regular rate/rhythm Gastrointestinal: Hypoactive, Tenderness (Mild diffuse tenderness) Musculoskeletal: No clubbing Integumentary: No rashes Neurological: Normal speech - Studies Laboratory Data (last 24 hrs) 11/21/17 15:09: WBC 26.6 H*, Hgb 13.6, Hct 43.0, Plt Count 331 11/21/17 15:09: Sodium 134 L, Potassium 5.2 H, BUN 46 H, Creatinine 4.23 H, Glucose 326 H, Total Bilirubin 1.0, AST 20, ALT 12, Alkaline Phosphatase 282 H, Lipase 32 Assessment and Plan - Problems (Diagnosis) (1) Cholecystitis Current Visit: Yes Status: Acute Plan: Patient is 57 years of age Kyrgyz-speaking only admitted with a 3 day history of nausea vomiting diarrhea abdominal discomfort patient has cholecystitis on a CT scan elevated white count patient is on dialysis potassium is mildly elevated IMPRESSION: Small to moderate amount of ascites Mild colonic wall thickening could be secondary to hypoalbuminemia or cholecystitis Gallbladder sludge. The gallbladder is mildly distended. Gallbladder wall thickening may be secondary to hypoalbuminemia or cholecystitis Plan admit to the floor console nephrology general surgery IV antibiotics with levofloxacin and Flagyl C. difficile and p.o. Continue to monitor labs ordered alkaline phosphatase elevated abnormal LFTs Plan to discharge in: 48 Hours - Advance Directives Does patient have a Living Will: No Does patient have a Durable POA for Healthcare: No
[2017-11-21] MEDS ORDERED: METRONIDAZOLE 500mg IVPB 500 MG/100 ML BAG IV ONE (18:28)
[2017-11-21] MEDS ORDERED: CEFTRIAXONE/SWI 1gm 1 GM/10 ML SYR ONE (18:28)
[2017-11-21] MEDS ORDERED: SOD POLYSTYREN SUL 15 GM/60 ML UCUP PO ONE (18:30)
[2017-11-21] MEDS ORDERED: METRONIDAZOLE 500mg IVPB 500 MG/100 ML BAG IV SCH (21:00)
[2017-11-21] MEDS ORDERED: GLUCAGON 1 MG/VIAL IM PRN (21:49)
[2017-11-21] MEDS ORDERED: D50W 25 GM/50 ML SYRINGE IV PRN (21:49)
[2017-11-21] MEDS: Levofloxacin 250mg IV 250 MG/50 ML BAG IV SCH (23:22)
[2017-11-21] MEDS: ONDANSETRON 4 MG/2 ML VIAL IV PRN (23:22)
[2017-11-21] MEDS: INSULIN -REGULAR HUMAN 50 UNIT/0.5 ML ML SQ SCH (23:45)
[2017-11-22] MEDS: METRONIDAZOLE 500mg IVPB 500 MG/100 ML BAG IV SCH ×3 (01:25→18:02)
[2017-11-22 05:03] LABS: Hematocrit 36.6 % (36.0-45.0); MCH 27.8 pg (27.0-35.0); MCV 86.3 fL (80-100); MPV 8.1 fL (7.6-11.3); RBC Red Blood Cell Count 4.25 M/uL (3.86-4.86)
[2017-11-22 05:20] LABS: Albumin 2.6 g/dL (3.2-5.5); Bilirubin Total 1.3 mg/dL (0.3-1.2); Protein, Total 6.7 g/dL (6.0-8.3)
[2017-11-22] MEDS: INSULIN -REGULAR HUMAN 50 UNIT/0.5 ML ML SQ SCH ×4 (06:00→21:22)
[2017-11-22] MEDS ORDERED: HYDRALAZINE HCL 20 MG/ML VIAL IV PRN (08:17)
[2017-11-22] MEDS ORDERED: SODIUM CHLORIDE 0.9% 10ML INJ IV PRN (08:19)
[2017-11-22] MEDS ORDERED: PANTOPRAZOLE 40 MG INJ IVP SCH (09:00)
--- NOTE | 2017-11-22 09:00 | RAD REPORT ---
EXAM DESCRIPTION: Elin Single View11/22/2017 6:42 am CLINICAL HISTORY: Abdominal pain COMPARISON: October 2017 FINDINGS: The lungs appear clear of acute infiltrate. The heart is borderline enlarged. Central venous catheter remains in place IMPRESSION: No acute abnormalities displayed
--- NOTE | 2017-11-22 09:34 | RAD REPORT ---
EXAM DESCRIPTION: US - Abdomen Exam Limited - 11/22/2017 8:39 am CLINICAL HISTORY: Abdominal pain. COMPARISON: October 29, 2017 FINDINGS: The amount of sludge within the gallbladder has increased and is large. A gallstone is not seen. The gallbladder wall measures 7 millimeters The biliary tree is normal caliber. IMPRESSION: Large amount gallbladder sludge. Thickening of the gallbladder wall may be related to hypoalbuminemia or cholecystitis
--- NOTE | 2017-11-22 10:26 | P.PN ---
Subjective Date of Service: 11/22/17 Primary Care Provider: Nephrology-Dr. Ortiz Chief Complaint: Possible cholecystitis Subjective: Other (Patient doing better. Less pain to the left quadrant and abdominal region. No significant nausea vomiting noted.) Physical Examination - Vital Signs Temperature: 98.5 F Blood Pressure: 161/71 Pulse: 105 Respirations: 16 Pulse Ox (%): 95 - Physical Exam General: Alert, In no apparent distress, Oriented x3, Cooperative HEENT: Atraumatic Neck: Supple Respiratory: Clear to auscultation bilaterally, Normal air movement Cardiovascular: Normal pulses, Regular rate/rhythm Gastrointestinal: Normal bowel sounds, Soft and benign, Non-distended, No masses , No rebound, No guarding, Tenderness (Minimal pain to the left quadrant) Musculoskeletal: No erythema, No tenderness, No warmth Integumentary: No tenderness/swelling, No erythema, No warmth, No cyanosis Neurological: Normal speech, Normal strength at 5/5 x4 extr, Normal tone, Normal affect - Studies Laboratory Data (last 24 hrs) 11/21/17 15:09: WBC 26.6 H*, Hgb 13.6, Hct 43.0, Plt Count 331 11/21/17 15:09: Sodium 134 L, Potassium 5.2 H, BUN 46 H, Creatinine 4.23 H, Glucose 326 H, Total Bilirubin 1.0, AST 20, ALT 12, Alkaline Phosphatase 282 H, Lipase 32 Medications List Reviewed: Yes Assessment & Plan - Problems (Diagnosis) (1) Colitis Current Visit: Yes Status: Acute Plan: Case discussed at length with surgery. Patient likely with colitis. Cholecystitis ruled out. Will continue with IV antibiotic therapy. Will need to evaluate for C diff colitis. If abnormal for C diff will need to adjust medications. Will start with a clear liquid diet. Will monitor and advance as tolerated (2) Abdominal pain Onset Date: 02/18/17 Current Visit: No Status: Acute Plan: As above likely related to colitis. Will continue with above plan of care. Qualifiers: Abdominal location: left upper quadrant Qualified Code(s): R10.12 - Left upper quadrant pain (3) Atrial fibrillation Onset Date: 12/07/16 Current Visit: No Status: Chronic Plan: Patient with history of atrial fibrillation. Patient not on chronic anti coagulation therapy. Will need to verify home medications. Will provide DVT prophylaxis. Qualifiers: Atrial fibrillation type: paroxysmal (4) Diabetes mellitus Onset Date: 10/08/16 Current Visit: No Status: Chronic Plan: Will continue with Accu-Cheks. Will provide a sliding scale. 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 Dialysis will be set up today. (6) GERD (gastroesophageal reflux disease) Onset Date: 12/07/16 Current Visit: No Status: Chronic Plan: Will provide medication. Qualifiers: Esophagitis presence: esophagitis presence not specified Qualified Code(s) : K21.9 - Gastro-esophageal reflux disease without esophagitis (7) Depression with anxiety Current Visit: Yes Status: Chronic Plan: Will need to verify and restart home medication (8) Hyperkalemia Onset Date: 05/26/16 Current Visit: No Status: Acute Plan: This has improved. Patient will get dialysis today. Discharge Plan: Home Plan to discharge in: 48 Hours Time Spent Managing Pts Care (In Minutes): 55
--- NOTE | 2017-11-22 15:49 | CON ---
Date of Consultation: 11/21/2017 Reason: Abdominal pain, colitis, possible cholecystitis. History Of Present Illness: The patient is a 57-year-old female, presents yesterday to the emergency room with acute onset of diarrhea, abdominal pain in the epigastrium, and left-sided abdominal pain. She denies any nausea or vomiting. Currently, she is hungry. The diarrhea has multiple times. Ricci antonio does think she was treated with antibiotics within the last month, but not sure. She had significa nt leukocytosis and had possible cholecystitis and colitis on the CAT scan. She was admitted and I w as consulted. Currently, she is awake, alert. Pain is not too bad in time and she is hungry. No so re throat, runny nose, cough, headaches, or dizziness. No chest pain. No fever or chills. Review of Systems: Otherwise unremarkable. Please note, the patient is [place]-speaking and I had an fabrication specialist in the room when we I got the history. Past Medical History: End-stage renal disease, diabetes, cholestatic jaundice, diabetic gastroparesi s, GERD, AFib, and history of pneumonia. Past Surgical History: Bilateral tubal ligation, Tesio catheter placement, and eye surgery. Allergies: PENICILLIN. Social History: She does not smoke or drink. Family History: Significant for diabetes, hypertension, unknown type of cancer in the mother. Physical Examination: Vital Signs: Significant for heart rate of 105, blood pressure 161/71. She is afebrile. General: She is awake, alert, and oriented x3. Head and Neck: No masses. No JVD. Throat clear. Neck is supple. Chest: Clear. Heart: S1, S2. Abdomen: Soft, nondistended. Positive bowel sounds. Positive, minimal tenderness in the epigastriu m and left upper quadrant. No rebound, rigidity, or guarding. EXTREMITIES: Adequately perfused. Nontender. Neuro: Nonfocal. Laboratory Data: White count on admission was 26.6, today is 27.8, there is a left shift. Chemistry reviewed. She is not acidotic. CO2 is 25. Total bilirubin is 1.3. Alkaline phosphatase is 219. AST and ALT are normal. Lipase is normal. She had a CT of the abdomen and pelvis which showed small to moderate amount of ascites and mild colonic wall thickening, could be secondary to hypoalbuminemi a or colitis, gallbladder sludge. Gallbladder is mildly distended. Gallbladder wall thickening may be secondary to hypoalbuminemia or cholecystitis and then she had an ultrasound which is far more se nsitive for cholecystitis and CT shows large amount of gallbladder sludge. Thickening of the gallbla dder wall may be related to hypoalbuminemia or cholecystitis. Assessment: A 57-year-old female with multiple medical problems with abdominal pain, leukocytosis, p robable colitis, possible cholecystitis. Recommendation: Clinically, I think, the history is more consistent with C diff colitis. Her C diff is pending. I do not think, she has acute cholecystitis and should there be a concern, we can alway s get a HIDA scan; however, at this time, we will await the results of the C diff, continue her antib iotics She is hungry. We will start her on clear liquids. Continue her hydration and we will follo w this patient while in the hospital. If the C diff is negative, we will try to get a HIDA scan on t he patient to evaluate the gallbladder lumen better, but my gut feeling is that, the patient has coli tis and antibiotic induced diarrhea, that is why her leukocytosis is significant. She has no periton eal signs in the right upper quadrant and based on ultrasound findings, I do not think the patient has acute cholecystitis. GISELLE/TAMMIE Voice ID: [id number] Report ID: [id number]
[2017-11-22] MEDS: HYDRALAZINE HCL 25 MG TABLET PO SCH (18:02)
[2017-11-22] MEDS: ENOXAPARIN 30 MG/0.3 ML SQ SCH (18:02)
[2017-11-22] MEDS: Levofloxacin 250mg IV 250 MG/50 ML BAG IV SCH (20:56)
[2017-11-22] MEDS: LISINOPRIL 20 MG TAB PO SCH (20:56)
[2017-11-22] MEDS: PANTOPRAZOLE 40 MG INJ IVP SCH (20:57)
[2017-11-23] MEDS: HYDRALAZINE HCL 25 MG TABLET PO SCH ×4 (00:22→18:00)
[2017-11-23] MEDS: METRONIDAZOLE 500mg IVPB 500 MG/100 ML BAG IV SCH ×3 (00:23→18:00)
--- NOTE | 2017-11-23 00:49 | CON ---
Date of Consultation: 11/22/2017 Chief Complaint: End-stage renal disease, on dialysis. History Of Present Illness: The patient has multiple medical problems. She presented to the hospital because of abdominal pain, nausea, vomiting, and subjective fever. The patient has been treated with dialysis 3 times per week. Today, she is scheduled to have dialysis to control electrolytes. Potassium was elevated and she had fluid overload. The patient is to have blood culture with dialysis because of subjective fever. Review of Systems: General: The patient denies syncope. Eyes: Denies new vision changes. Ears, Nose, Mouth, and Throat: Denies sore throat or earache. Respiratory: Denies PND or orthopnea. GI: Has abdominal pain, nausea, vomiting. Denies melena or hematemesis. : Denies dysuria, hematuria. All other system reviewed and all are negative. Past Medical History: Hypertension, diabetes mellitus, anemia in CKD, renal osteodystrophy, End-stage renal disease on dialysis Wednesday, Wednesday, Wednesday. Cataract, diabetic gastroparesis, GERD, obesity, atrial fibrillation, pneumonia , UTI, tubal ligation, eye surgery, Tesio catheter placement, AV fistula placement. Family History: Hypertension and diabetes. Mother; hypertension, diabetes, cancer. Brother, hypertension and diabetes. Social History: Denies tobacco, alcohol, or illicit drugs. Physical Examination: General: The patient is awake, alert. Eyes: Anicteric sclerae. EOMI. Ears, Nose, Mouth, and Throat: Oral mucosa moist. No pallor. Neck: Supple. No JVD. No bruits. Lungs: Clear to auscultation bilaterally. Heart: S1, S2. No pericardial friction rub. Abdomen: Diffuse tenderness and right upper tenderness. No rebound. No guarding. Extremities: No edema. No clubbing. No cyanosis. Neurologic: alert , oriented x3, no tremor Skin : warm and dry , no oozing Laboratory Data: WBC 26.6, hemoglobin 13.6, hematocrit 43, platelet count 331. Sodium 134, potassium 5.2, BUN 46, creatinine 4.23, glucose 326. Total bilirubin 1, AP is 282, lipase 32. Impression: 1. End-stage renal disease. The patient will have dialysis today to obtain metabolic clearance and ultrafiltration. Monitor electrolytes. 2. The patient is complaining of nausea, vomiting, and has abdominal discomfort. She is undergoing workup for cholecystitis. The patient was found to have elevated white count. Antibiotics were started for sepsis. The patient is to have blood culture to rule out bacteremia. 3. Possible cholecystitis versus colitis. Continue for workup. 4. Anemia in chronic kidney disease. Monitor hemoglobin level. At this point , the patient does not need SHAYE. 5. Renal osteodystrophy. The patient is on limited intake, binders on hold. PEDRO/TAMMIE Voice ID: [id number] Report ID: [id number]
[2017-11-23 05:02] LABS: Absolute Lymphocytes (CBC) 0.5 K/uL (0.7-4.9); Absolute Neutrophil 19.9 K/uL (1.8-8.0); Basophils % 0.2 % (0-1.3); Eosinophils % 0.7 % (0-4.4); Hematocrit 33.4 % (36.0-45.0); Lymphocytes % 2.4 % (15.3-44.8); MCH 28.2 pg (27.0-35.0); MCV 85.1 fL (80-100); MPV 8.2 fL (7.6-11.3); Monocytes % 4.5 % (3.3-12.3); RBC Red Blood Cell Count 3.93 M/uL (3.86-4.86)
[2017-11-23 05:26] LABS: Magnesium 2.3 mg/dL (1.8-2.5); Potassium 3.8 mEq/L (3.6-5.0)
[2017-11-23] MEDS: INSULIN -REGULAR HUMAN 50 UNIT/0.5 ML ML SQ SCH ×4 (07:30→20:51)
--- NOTE | 2017-11-23 08:34 | P.PN ---
Subjective Date of Service: 11/23/17 Primary Care Provider: Nephrology-Dr. Ortiz Chief Complaint: Possible cholecystitis Subjective: Improving (Patient feeling better. No significant nausea or vomiting noted. Pain to the left quadrant improved.) Physical Examination - Vital Signs Temperature: 97.0 F Blood Pressure: 158/69 Pulse: 92 Respirations: 16 Pulse Ox (%): 94 - Physical Exam General: Alert, In no apparent distress, Oriented x3, Cooperative HEENT: Atraumatic Neck: Supple Respiratory: Clear to auscultation bilaterally, Normal air movement Cardiovascular: Normal pulses, Regular rate/rhythm Gastrointestinal: Normal bowel sounds, Soft and benign, Non-distended, No tenderness, No masses, No rebound, No guarding Musculoskeletal: No erythema, No tenderness, No warmth Integumentary: No erythema, No warmth, No cyanosis Neurological: Normal speech, Normal strength at 5/5 x4 extr, Normal tone, Normal affect - Studies Medications List Reviewed: Yes Assessment & Plan - Problems (Diagnosis) (1) Colitis Current Visit: Yes Status: Acute Plan: Case discussed at length with surgery yesterday. Patient likely with colitis. C diff culture was negative. Will also rule out cholecystitis with HIDA scan. Will continue IV antibiotic therapy. Patient seems to tolerate her diet. Will advance her diet as tolerated. Will ambulate patient. White count still elevated but improved. Blood culture pending. (2) Abdominal pain Onset Date: 02/18/17 Current Visit: No Status: Acute Plan: As above likely related to colitis. Will order HIDA scan to rule out cholecystitis. Continue with above plan of care. Qualifiers: Abdominal location: left upper quadrant Qualified Code(s): R10.12 - Left upper quadrant pain (3) Atrial fibrillation Onset Date: 12/07/16 Current Visit: No Status: Chronic Plan: Patient with history of atrial fibrillation. Patient not on chronic anti coagulation therapy. Will continue with DVT prophylaxis. Qualifiers: Atrial fibrillation type: paroxysmal (4) Diabetes mellitus Onset Date: 10/08/16 Current Visit: No Status: Chronic Plan: Will continue with Accu-Cheks. Will provide a sliding scale. Qualifiers: Diabetes mellitus type: type 2 Diabetes mellitus terminal superintendent insulin use: with terminal superintendent use Diabetes mellitus complication status: with other specified complication Qualified Code(s): E11.69 - Type 2 diabetes mellitus with other specified complication; Z79.4 - remote computer terminal operator (current) use of insulin; Z79.4 - penitentiary (current) use of insulin; Z79.4 - remote computer terminal operator (current) use of insulin; Z79.4 - penitentiary (current) use of insulin (5) ESRD (end stage renal disease) Onset Date: 06/15/16 Current Visit: No Status: Chronic Plan: Patient gets dialysis Wednesday, Wednesdays and Fridays. Patient received dialysis yesterday. Will monitor closely. (6) GERD (gastroesophageal reflux disease) Onset Date: 12/07/16 Current Visit: No Status: Chronic Plan: Will provide medication. Qualifiers: Esophagitis presence: esophagitis presence not specified Qualified Code(s) : K21.9 - Gastro-esophageal reflux disease without esophagitis (7) Depression with anxiety Current Visit: Yes Status: Chronic Plan: Will continue with home medication (8) Hyperkalemia Onset Date: 05/26/16 Current Visit: No Status: Acute Plan: This has improved. Patient will get dialysis today. (9) Cholecystitis Onset Date: 11/22/17 Current Visit: Yes Status: Suspected Plan: No right upper quadrant pain noted. Abdominal pain improved overall. Patient likely with colitis. Since C diff culture was negative will order HIDA scan to further assess as recommended by surgery Discharge Plan: Home Plan to discharge in: 24 Hours (to 48 hours) Time Spent Managing Pts Care (In Minutes): 55
[2017-11-23] MEDS ORDERED: DOXAZOSIN 2 MG TAB PO SCH (09:00)
[2017-11-23] MEDS: LISINOPRIL 20 MG TAB PO SCH ×2 (09:25→21:14)
[2017-11-23] MEDS: SERTRALINE HCL 100 MG TAB PO SCH (09:26)
[2017-11-23] MEDS: PANTOPRAZOLE 40 MG INJ IVP SCH ×2 (09:26→21:14)
[2017-11-23] MEDS: LOPERAMIDE HCL 2 MG CAPSULE PO PRN (09:42)
--- NOTE | 2017-11-23 14:49 | PN ---
Date of Progress Note: 11/23/2017 Subjective: The patient is awake, alert, tolerating diet. No pain. No nausea or vomiting. Objective: Vital Signs: Stable, afebrile. Abdomen: Soft, nondistended, nontender. Positive bowel sounds. Laboratory Data: White count is down to 21,000. C diff is negative. Assessment: Colitis. Recommendation: Continue antibiotics. Once the white count is close to normalization, she can be di scharged on oral antibiotics and no need for surgical intervention at this time. The patient does no t have acute cholecystitis. /MODL Voice ID: [id number] Report ID: [id number]
[2017-11-23] MEDS: ENOXAPARIN 30 MG/0.3 ML SQ SCH (18:00)
[2017-11-23] MEDS: Levofloxacin 250mg IV 250 MG/50 ML BAG IV SCH (21:14)
[2017-11-24] MEDS: HYDRALAZINE HCL 25 MG TABLET PO SCH ×4 (00:17→18:37)
[2017-11-24] MEDS: METRONIDAZOLE 500mg IVPB 500 MG/100 ML BAG IV SCH ×3 (00:17→18:37)
--- NOTE | 2017-11-24 02:06 | PN ---
Date of Progress Note: 11/23/2017 Subjective: The patient doing better. No diarrhea. No abdominal pain. Started on liquid diet. Physical Examination: General: When I saw the patient, the patient lying in bed, comfortable, not in any distress. Vital Signs: Blood pressure 171/75, pulse 100, afebrile. Chest: Clear to auscultation. Heart: S1, S2. Regular. Abdomen: Soft, nontender. Extremities: No edema. Laboratory Data: WBC 21.6, H and H 11.1/33.4, platelet 264. Sodium 130, potassium 3.8, bicarb 26, B UN 36, creatinine 3.3, calcium 8.6, magnesium 2.3. Culture still negative. Medications: Current medications the patient on its include; 1.Lovenox. 2.Hydralazine 50 q.6. 3.Lisinopril 20 b.i.d. 4.Loperamide. 5.Metronidazole. 6.Pantoprazole. 7.Levaquin 250 daily. Assessment And Plan: 1.End-stage renal disease. I am going to go ahead and arrange for dialysis tomorrow. We will dialy ze on a 3 K bath. 2.Hyponatremia secondary to renal failure, it going to be resolve tomorrow with the dialysis. 3.Anemia of chronic kidney disease. No need for SHAYE. 4.Diarrhea with diverticulosis/diverticulitis. Continue current antibiotic. We will follow up. 5.Cholecystitis, ruled out by Surgery. 6.Diabetes as by primary. 7.Hypertension, controlled, not optimal. I am going to follow up blood pressure after dialysis enrico rrow. We will go ahead and increase Cardura to b.i.d. and we will follow up. 8.Leukocytosis mostly secondary to colitis. We will follow up after finishing the treatment. Facundo donovan up culture. MANJIT/TAMMIE Voice ID: [id number] Report ID: [id number]
[2017-11-24 04:07] LABS: HBsAG Nonreactive (Nonreactive)
[2017-11-24 05:04] LABS: Absolute Lymphocytes (CBC) 0.6 K/uL (0.7-4.9); Absolute Monocytes 1.1 K/uL (0.1-1.3); Absolute Neutrophil 17.1 K/uL (1.8-8.0); Basophils % 0.1 % (0-1.3); Eosinophils % 0.6 % (0-4.4); Lymphocytes % 2.9 % (15.3-44.8); MCV 85.4 fL (80-100); Monocytes % 5.7 % (3.3-12.3); RBC Red Blood Cell Count 4.22 M/uL (3.86-4.86)
[2017-11-24 05:28] LABS: Magnesium 2.2 mg/dL (1.8-2.5); Potassium 4.2 mEq/L (3.6-5.0)
[2017-11-24] MEDS: ONDANSETRON 4 MG/2 ML VIAL IV PRN ×3 (05:28→22:04)
[2017-11-24] MEDS: INSULIN -REGULAR HUMAN 50 UNIT/0.5 ML ML SQ SCH ×4 (07:30→22:03)
[2017-11-24] MEDS: DOXAZOSIN 2 MG TAB PO SCH ×2 (08:53→22:02)
[2017-11-24] MEDS: LISINOPRIL 20 MG TAB PO SCH ×2 (08:54→22:02)
[2017-11-24] MEDS: SERTRALINE HCL 100 MG TAB PO SCH (08:54)
[2017-11-24] MEDS: PANTOPRAZOLE 40 MG INJ IVP SCH ×2 (08:55→22:04)
--- NOTE | 2017-11-24 10:03 | P.PN ---
Subjective Date of Service: 11/24/17 Primary Care Provider: Nephrology-Dr. Ortiz Chief Complaint: Possible cholecystitis Subjective: Other (Patient doing better today. No significant abdominal pain nausea noted. Patient is having bowel movements.) Physical Examination - Vital Signs Temperature: 96.5 F Blood Pressure: 154/72 Pulse: 86 Respirations: 18 Pulse Ox (%): 99 - Physical Exam General: Alert, In no apparent distress, Oriented x3, Cooperative HEENT: Atraumatic Neck: Supple Respiratory: Clear to auscultation bilaterally, Normal air movement Cardiovascular: Normal pulses, Regular rate/rhythm Gastrointestinal: Normal bowel sounds, Soft and benign, Non-distended, No tenderness, No masses, No rebound, No guarding Musculoskeletal: No erythema, No tenderness, No warmth Integumentary: No tenderness/swelling, No erythema, No warmth, No cyanosis Neurological: Normal speech, Normal strength at 5/5 x4 extr, Normal tone, Normal affect - Studies Medications List Reviewed: Yes Assessment & Plan - Problems (Diagnosis) (1) Colitis Current Visit: Yes Status: Acute Plan: This has improved. Patient without abdominal pain noted. Will continue with renal diet. Will ambulate patient. Case discussed at length with surgery. This is likely colitis. Doubt cholecystitis. White count improved. Likely discharge in the next day. Sodium level low. Patient will receive dialysis. Will discuss with nephrology. Abdominal ultrasound showed gallbladder sludge. This can be further addressed as an outpatient by surgery. (2) Abdominal pain Onset Date: 02/18/17 Current Visit: No Status: Acute Plan: As above likely related to colitis. Case discussed at length with surgery yesterday. No need for HIDA scan at this time. Will continue with antibiotic therapy. Will continue with diet. Will ambulate patient. Possible discharge tomorrow Qualifiers: Abdominal location: left upper quadrant Qualified Code(s): R10.12 - Left upper quadrant pain (3) Atrial fibrillation Onset Date: 12/07/16 Current Visit: No Status: Chronic Plan: Patient with history of atrial fibrillation. Patient not on chronic anti coagulation therapy. Will continue with DVT prophylaxis. Qualifiers: Atrial fibrillation type: paroxysmal (4) Diabetes mellitus Onset Date: 10/08/16 Current Visit: No Status: Chronic Plan: Will continue with Accu-Cheks. Will provide a sliding scale. Qualifiers: Diabetes mellitus type: type 2 Diabetes mellitus terminal carman insulin use: with terminal carman use Diabetes mellitus complication status: with other specified complication Qualified Code(s): E11.69 - Type 2 diabetes mellitus with other specified complication; Z79.4 - correction (current) use of insulin; Z79.4 - extermination inspector (current) use of insulin; Z79.4 - correction (current) use of insulin; Z79.4 - correction (current) use of insulin (5) ESRD (end stage renal disease) Onset Date: 06/15/16 Current Visit: No Status: Chronic Plan: Patient gets dialysis Wednesday, Wednesdays and Fridays. Patient to get dialysis today. (6) GERD (gastroesophageal reflux disease) Onset Date: 12/07/16 Current Visit: No Status: Chronic Plan: Will provide medication. Qualifiers: Esophagitis presence: esophagitis presence not specified Qualified Code(s) : K21.9 - Gastro-esophageal reflux disease without esophagitis (7) Depression with anxiety Current Visit: Yes Status: Chronic Plan: Will continue with home medication (8) Hyperkalemia Onset Date: 05/26/16 Current Visit: No Status: Acute Plan: This has improved. Patient will get dialysis today. (9) Cholecystitis Onset Date: 11/22/17 Current Visit: Yes Status: Suspected Plan: Case discussed at length with surgery. No right upper quadrant pain noted. Doubt cholecystitis. Abdominal ultrasound showed gallbladder sludge. Patient currently being treated for colitis. This can be further addressed as an outpatient. (10) Hyponatremia Onset Date: 04/06/17 Current Visit: No Status: Acute Plan: Patient will receive dialysis. Will discuss with nephrology. Discharge Plan: Home Plan to discharge in: 24 Hours Time Spent Managing Pts Care (In Minutes): 55
[2017-11-24] MEDS: ENOXAPARIN 30 MG/0.3 ML SQ SCH (18:37)
--- NOTE | 2017-11-24 18:51 | PN ---
Subjective: This patient seen on dialysis. The patient has no diarrhea, no nausea, no vomiting. No abdominal pain. Physical Examination: Vital Signs: When I saw the patient, blood pressure 165/80, pulse of 88. Chest: Clear to auscultation. Heart: S1, S2. Regular. Abdomen: Soft. Nontender. Extremity: No edema. Laboratory Data: WBC 18.9, H and H 11.4/36, platelet 269. Sodium 124, potassium 4.2, bicarb 22, BUN 47, creatinine 4.2, calcium 8.7, magnesium 2.2. Medications: Current medications the patient on include: Cardura 2 mg b.i.d., hydralazine 50 q.i.d., lisinopril 20 b.i.d., metronidazole, loperamide, pantopra zole. Assessment And Plan: 1.End-stage renal disease. We will continue hemodialysis. I will go ahead and increase her goal to day, and we will monitor. 2.Hypertension. Uncontrolled. I will go ahead and increase her hydralazine to 75 mg q.i.d., and we will follow up the patient. 3.Anemia of chronic kidney disease. No need for SHAYE. 4.Colitis, still has leukocytosis. Symptomatic currently. We will continue current antibiotic. We will follow up culture and CBC. 5.Hyponatremia, secondary to depletion and renal failure. The patient is going to be corrected on dialysis today. Case discussed with Dr. Romero. MANJIT/TAMMIE Voice ID: [id number] Report ID: [id number]
[2017-11-24] MEDS: Levofloxacin 250mg IV 250 MG/50 ML BAG IV SCH (22:04)
[2017-11-25] MEDS: HYDRALAZINE HCL 25 MG TABLET PO SCH ×4 (01:20→18:34)
[2017-11-25] MEDS: METRONIDAZOLE 500mg IVPB 500 MG/100 ML BAG IV SCH ×2 (01:20→08:41)
[2017-11-25 05:38] LABS: Magnesium 2.1 mg/dL (1.8-2.5); Potassium 3.7 mEq/L (3.6-5.0)
[2017-11-25 05:39] LABS: Absolute Lymphocytes (CBC) 0.5 K/uL (0.7-4.9); Absolute Monocytes 1.3 K/uL (0.1-1.3); Absolute Neutrophil 19.1 K/uL (1.8-8.0); Basophils % 0.3 % (0-1.3); Eosinophils % 0.1 % (0-4.4); Hematocrit 36.3 % (36.0-45.0); Lymphocytes % 2.4 % (15.3-44.8); MCH 27.2 pg (27.0-35.0); MCV 85.5 fL (80-100); MPV 8.7 fL (7.6-11.3); Monocytes % 6.3 % (3.3-12.3); RBC Red Blood Cell Count 4.24 M/uL (3.86-4.86)
[2017-11-25 06:28] LABS: Anisocytosis 1+; Blood Morphology Comment NOTED (NOT SEEN); Platelet Estimate ADEQ; Target Cells 1+
[2017-11-25] MEDS: INSULIN -REGULAR HUMAN 50 UNIT/0.5 ML ML SQ SCH ×4 (08:31→21:00)
[2017-11-25] MEDS ORDERED: NA CHLORIDE 0.9% 250 ML ONE (08:34)
[2017-11-25] MEDS: DOXAZOSIN 2 MG TAB PO SCH ×2 (08:39→21:27)
[2017-11-25] MEDS: LISINOPRIL 20 MG TAB PO SCH ×2 (08:39→21:24)
[2017-11-25] MEDS: SERTRALINE HCL 100 MG TAB PO SCH (08:40)
[2017-11-25] MEDS: PANTOPRAZOLE 40 MG INJ IVP SCH (08:40)
--- NOTE | 2017-11-25 08:45 | P.PN ---
Subjective Date of Service: 11/25/17 Primary Care Provider: Nephrology-Dr. Ortiz Chief Complaint: Possible cholecystitis Subjective: Improving (Patient improved. Patient without any significant nausea or, vomiting or abdominal pain. Patient tolerating her diet. Patient did receive dialysis yesterday.) Physical Examination - Vital Signs Temperature: 97.8 F Blood Pressure: 150/70 Pulse: 109 Respirations: 20 Pulse Ox (%): 96 - Physical Exam General: Alert, In no apparent distress, Oriented x3, Cooperative HEENT: Atraumatic Neck: Supple Respiratory: Clear to auscultation bilaterally, Normal air movement Cardiovascular: Normal pulses, Regular rate/rhythm Gastrointestinal: Normal bowel sounds, Soft and benign, Non-distended, No tenderness, No masses, No rebound, No guarding Musculoskeletal: No erythema, No tenderness, No warmth Integumentary: No erythema, No warmth, No cyanosis Neurological: Normal speech, Normal strength at 5/5 x4 extr, Normal tone, Normal affect - Studies Medications List Reviewed: Yes Assessment & Plan - Problems (Diagnosis) (1) Colitis Current Visit: Yes Status: Acute Plan: This has improved. C diff culture negative. White count remains elevated but patient clinically improved. She is tolerating her diet. She is without any significant abdominal pain, nausea or vomiting. Will discuss with nephrology about possible discharge today. Patient still with hyponatremia. Patient received dialysis yesterday. Patient with colitis. Surgery doubts cholecystitis. Patient with gallbladder sludge. This can be further addressed as an outpatient. (2) Abdominal pain Onset Date: 02/18/17 Current Visit: No Status: Acute Plan: As above likely related to colitis. Case discussed at length with surgery. No need for HIDA scan at this time. White count still elevated. C diff culture negative. Blood culture negative. Will continue with antibiotic therapy. Patient tolerating diet. Will ambulate patient. Possible discharge today if okay with nephrology. Qualifiers: Abdominal location: left upper quadrant Qualified Code(s): R10.12 - Left upper quadrant pain (3) Atrial fibrillation Onset Date: 12/07/16 Current Visit: No Status: Chronic Plan: Patient with history of atrial fibrillation. Patient not on chronic anti coagulation therapy due to risk for fall and bleeding. Will continue with DVT prophylaxis. Qualifiers: Atrial fibrillation type: paroxysmal (4) Diabetes mellitus Onset Date: 10/08/16 Current Visit: No Status: Chronic Plan: Will continue with Accu-Cheks. Will provide a sliding scale. Qualifiers: Diabetes mellitus type: type 2 Diabetes mellitus correction insulin use: with correction use Diabetes mellitus complication status: with other specified complication Qualified Code(s): E11.69 - Type 2 diabetes mellitus with other specified complication; Z79.4 - senior living (current) use of insulin; Z79.4 - senior living (current) use of insulin; Z79.4 - senior living (current) use of insulin; Z79.4 - buttermilk drier operator (current) use of insulin (5) ESRD (end stage renal disease) Onset Date: 06/15/16 Current Visit: No Status: Chronic Plan: Patient gets dialysis Wednesday, Wednesdays and Fridays. Patient received dialysis yesterday. (6) GERD (gastroesophageal reflux disease) Onset Date: 12/07/16 Current Visit: No Status: Chronic Plan: Will continue with medication Qualifiers: Esophagitis presence: esophagitis presence not specified Qualified Code(s) : K21.9 - Gastro-esophageal reflux disease without esophagitis (7) Depression with anxiety Current Visit: Yes Status: Chronic Plan: Will continue with home medication (8) Hyperkalemia Onset Date: 05/26/16 Current Visit: No Status: Acute Plan: This has resolved. Will monitor closely. (9) Cholecystitis Onset Date: 11/22/17 Current Visit: Yes Status: Suspected Plan: Case discussed at length with surgery. No right upper quadrant pain noted. Doubt cholecystitis. Abdominal ultrasound showed gallbladder sludge. Patient currently being treated for colitis. This can be further addressed as an outpatient. (10) Hyponatremia Onset Date: 04/06/17 Current Visit: No Status: Acute Plan: Patient received dialysis yesterday. Slight improvement noted. Will discuss with nephrology. Discharge Plan: Home Plan to discharge in: 24 Hours Time Spent Managing Pts Care (In Minutes): 55
[2017-11-25] MEDS: metroNIDAZOLE 500 MG TABLET PO SCH ×3 (08:50→21:27)
[2017-11-25] MEDS: levoFLOXacin 250 MG TAB PO SCH (10:46)
--- NOTE | 2017-11-25 14:40 | RAD REPORT ---
EXAM DESCRIPTION: US - Abdomen Exam Limited - 11/25/2017 2:18 pm CLINICAL HISTORY: Ascites evaluation COMPARISON: None. FINDINGS: Limited abdomen ultrasound was performed to evaluate for ascites. Ascites is identifiable. There are pockets of fluid that should be amenable to paracentesis. This is not a large volume, probably 3 liters. IMPRESSION: Ascites is present. The volume is not large but should be amenable to diagnostic/therape utic paracentesis.
[2017-11-25 15:03] LABS: Albumin 2.2 g/dL (3.2-5.5); Bilirubin Direct 0.4 mg/dL (0-0.2); Protein, Total 5.7 g/dL (6.0-8.3)
[2017-11-25] MEDS: ENOXAPARIN 30 MG/0.3 ML SQ SCH (16:26)
[2017-11-25] MEDS: PANTOPRAZOLE 40MG TABLET PO SCH (16:32)
--- NOTE | 2017-11-25 16:40 | PN ---
Date of Progress Note: 11/25/2017 Subjective: The patient doing well, asymptomatic. No fever. Does not complain from any pain, even though she naturally does not complain. There is no abdominal pain. Diarrhea has been stopped. No cough. Physical Examination: Vital Signs: When I saw the patient, blood pressure 150/70, pulse of 109, afebrile. Chest: Clear to auscultation. Heart: S1, S2. Systolic murmur. Abdomen: Possible ascites. Extremities: No edema. Neurologic: Alert and oriented x3. Nonfocal. Lymph Node System: Completely negative. Laboratory Data: WBC again 21.0, H and H 11.6/36.3, platelets 295. Sodium 127, potassium 3.7, bicar b 19, BUN 36, creatinine 3.4, calcium 8.7, magnesium 2.1. Medications: Current medications the patient on its include Levaquin 250 daily, metronidazole 500 t. i.d., Cardura 2 mg b.i.d., hydralazine 75 q.6, lisinopril 20 b.i.d., Zoloft, loperamide, pantoprazole . Microbiology: All negative. C. diff negative. Assessment And Plan: 1.End-stage renal disease, stable. We will continue hemodialysis. I am going to go ahead and arran for dialysis tomorrow. The patient is going to be dialyzed on 2 K bath and we will challenge the patient. 2.Anemia, stable. I do not see any need for SHAYE currently. 3.Leukocytosis/colitis. The patient already on antibiotic. Clostridium difficile was negative. Th e patient has ascites before. She has paracentesis. Possibly, she has a component of steatosis hepa titis or cirrhosis. We are going to go ahead and repeat ultrasound. If she still has ascites, we wi ll consider paracentesis with culture. Discussed the case with Dr. Romero. We will consider ID eval uation. 4.Hypertension, better controlled today. We will follow up blood pressure tomorrow after dialysis. We will continue current hydralazine dose. 5.Hyponatremia secondary to renal failure, dilutional. We will challenge the patient tomorrow and w e will monitor. I am going to be dialyzing the patient on high sodium bath to correct her sodium. C ase discussed with Dr. Romero. MANJIT/TAMMIE Voice ID: [id number] Report ID: [id number]
--- NOTE | 2017-11-25 19:34 | CON ---
History Of Present Illness: This is a 57-year-old female who came in with diarrhea and abdominal dis comfort. The patient has significant history of end-stage renal disease, on hemodialysis. Has a lef t forearm fistula, which is being used for dialysis at this time. As per patient, she is not having any abdominal pain at this time and continued to have diarrhea but no blood in it. The patient also has significant history of diabetes mellitus, cataract, cholestatic jaundice, diabetic gastroparesis, GERD, ascites, atrial fibrillation, pneumonia, pleural effusion, anemia, urinary tract infection, tu bal ligation, eye surgery, Tesio catheter placement. Social History: Nonsmoker, nondrinker. Family History: Diabetes mellitus and cancer and heart disease and hypertension. Medications: Include Levaquin, Flagyl. See MARs for other medication. Allergies: PENICILLIN. Review of Systems: A 10-point review was performed. Physical Examination: General: This is a 57-year-old female, lying in bed, not in any acute cardiopulmonary distress. Vital Signs: Temperature 98.5, pulse 100, respiration 14, blood pressure 152/72. HEENT: Unremarkable. Neck: Supple. Lungs: Basal crackles. Heart: S1, S2. Regular. Abdomen: Soft, nontender. Bowel sounds present. Distended. Extremities: No edema. Laboratory Data: Shows WBC 82412, hemoglobin 11.6, platelets are 295. Chemistry shows sodium 127, p otassium 3.7, chloride 91, bicarb 19, BUN 36, creatinine 3.4, glucose is 245. Blood cultures are neg ative for 24 hours. Chest x-ray done shows no acute abnormalities. Abdominal ultrasound done on shows a large amount of gallbladder sludge, thickening of the gallbladder wall may be related to h ypoalbuminemia and/or cholecystitis. Abdominal pelvis CT done on 11/21 shows [id number] amoun t of ascites, mild colonic wall thickening, could be secondary to hypoalbuminemia or cholecystitis, g allbladder sludge. Assessment And Plan: This is a 57-year-old female with significant history of end-stage renal diseas e and liver disease with ascites. I was consulted for persistent leukocytosis, which is most likely could be due to catheter versus colitis. Her Clostridium difficile is negative. The patient is curr ently on Levaquin and Flagyl, feeling better. Leukocytosis is persisting. We will continue this cur rent treatment, send stool for cultures, and repeat blood cultures 1 more time. Abdominal paracentes is is recommended to possibly rule out peritonitis. The patient's dental caries need to be evaluated also and the patient also needs to have evaluation of a Loc catheter to her left chest wall. We will follow the patient closely. Thank you Dr. Romero for consult. HIEN/TAMMIE Voice ID: [id number] Report ID: [id number]
[2017-11-25] MEDS: ONDANSETRON 4 MG/2 ML VIAL IV PRN (21:35)
[2017-11-26] MEDS: HYDRALAZINE HCL 25 MG TABLET PO SCH ×4 (00:56→17:44)
[2017-11-26 05:20] LABS: Protime INR 1.23
[2017-11-26 05:26] LABS: Absolute Lymphocytes (CBC) 0.4 K/uL (0.7-4.9); Absolute Monocytes 1.3 K/uL (0.1-1.3); Absolute Neutrophil 21.7 K/uL (1.8-8.0); Basophils % 0.2 % (0-1.3); Eosinophils % 0.3 % (0-4.4); Hematocrit 34.3 % (36.0-45.0); Lymphocytes % 1.7 % (15.3-44.8); MCH 27.4 pg (27.0-35.0); MCV 84.3 fL (80-100); MPV 8.1 fL (7.6-11.3); Monocytes % 5.5 % (3.3-12.3); RBC Red Blood Cell Count 4.07 M/uL (3.86-4.86)
[2017-11-26 05:44] LABS: Potassium 3.8 mEq/L (3.6-5.0)
[2017-11-26] MEDS: INSULIN -REGULAR HUMAN 50 UNIT/0.5 ML ML SQ SCH ×4 (07:30→21:00)
[2017-11-26] MEDS: PANTOPRAZOLE 40MG TABLET PO SCH ×2 (07:30→16:30)
[2017-11-26] MEDS: SERTRALINE HCL 100 MG TAB PO SCH (09:00)
[2017-11-26] MEDS: metroNIDAZOLE 500 MG TABLET PO SCH ×3 (09:00→21:11)
[2017-11-26] MEDS: DOXAZOSIN 2 MG TAB PO SCH ×2 (09:00→21:11)
[2017-11-26] MEDS: levoFLOXacin 250 MG TAB PO SCH (09:00)
[2017-11-26] MEDS: LISINOPRIL 20 MG TAB PO SCH ×2 (09:00→21:10)
[2017-11-26] MEDS: LOPERAMIDE HCL 2 MG CAPSULE PO PRN (09:35)
--- NOTE | 2017-11-26 10:59 | P.PN ---
Subjective Date of Service: 11/26/17 Primary Care Provider: Nephrology-Dr. Ortiz Chief Complaint: Possible cholecystitis Subjective: Other (Patient appears well. She did tolerate her diet yesterday. No significant nausea or vomiting noted. No abdominal pain noted.) Physical Examination - Vital Signs Temperature: 97.7 F Blood Pressure: 138/57 Pulse: 165 Respirations: 20 Pulse Ox (%): 96 - Physical Exam General: Alert, In no apparent distress, Oriented x3, Cooperative HEENT: Atraumatic Neck: Supple Respiratory: Clear to auscultation bilaterally, Normal air movement Cardiovascular: Abnormal pulses (Mild tachycardia) Gastrointestinal: Normal bowel sounds, Soft and benign, No tenderness, No masses , No rebound, No guarding, Ascites Musculoskeletal: No erythema, No tenderness, No warmth Integumentary: No tenderness/swelling, No erythema, No warmth, No cyanosis Neurological: Normal speech, Normal strength at 5/5 x4 extr, Normal tone, Normal affect - Studies Medications List Reviewed: Yes Assessment & Plan - Problems (Diagnosis) (1) Colitis Current Visit: Yes Status: Acute Plan: Colitis has improved. C diff culture negative. White count remains elevated. Troponin was also elevated yesterday. Case discussed at length with nephrology and infectious disease. Patient is to have a paracentesis today. 3 L removed as noted by radiology. Await culture results to evaluate for SBP. Blood cultures obtained yesterday to evaluate continued leukocytosis. If this continues her dialysis catheter will need to be removed and cultured. Will discuss with nephrology and infectious disease. At this time, Will wait on blood cultures and paracentesis results. If the dialysis catheter needs to be removed this will likely occur after dialysis. It would then need to be replaced as her AV graft has yet to mature Galvan. Abdominal ultrasound did shows some gallbladder sludge. Case discussed at length with surgery the other day. Surgery doubts cholecystitis. Patient without abdominal pain at this time. Patient able to take renal diet. No nausea vomiting noted. (2) Abdominal pain Onset Date: 02/18/17 Current Visit: No Status: Acute Plan: Continue with above plan of care Qualifiers: Abdominal location: left upper quadrant Qualified Code(s): R10.12 - Left upper quadrant pain (3) Atrial fibrillation Onset Date: 12/07/16 Current Visit: No Status: Chronic Plan: Patient with history of atrial fibrillation. Patient not on chronic anti coagulation therapy due to risk for fall and bleeding. Will continue with DVT prophylaxis. Qualifiers: Atrial fibrillation type: paroxysmal (4) Diabetes mellitus Onset Date: 10/08/16 Current Visit: No Status: Chronic Plan: Will continue with Accu-Cheks. Will provide a sliding scale. Qualifiers: Diabetes mellitus type: type 2 Diabetes mellitus [facility] insulin use: with terminal superintendent use Diabetes mellitus complication status: with other specified complication Qualified Code(s): E11.69 - Type 2 diabetes mellitus with other specified complication; Z79.4 - terminal superintendent (current) use of insulin; Z79.4 - terminal superintendent (current) use of insulin; Z79.4 - snf (current) use of insulin; Z79.4 - terminal superintendent (current) use of insulin (5) ESRD (end stage renal disease) Onset Date: 06/15/16 Current Visit: No Status: Chronic Plan: Patient gets dialysis Wednesday, Wednesdays and Fridays. Patient will continue with dialysis (6) GERD (gastroesophageal reflux disease) Onset Date: 12/07/16 Current Visit: No Status: Chronic Plan: Will continue with medication Qualifiers: Esophagitis presence: esophagitis presence not specified Qualified Code(s) : K21.9 - Gastro-esophageal reflux disease without esophagitis (7) Depression with anxiety Current Visit: Yes Status: Chronic Plan: Will continue with home medication (8) Hyperkalemia Onset Date: 05/26/16 Current Visit: No Status: Acute Plan: This has resolved. Will monitor closely. (9) Hyponatremia Onset Date: 04/06/17 Current Visit: No Status: Acute Plan: Patient received dialysis yesterday. Slight improvement noted. Will discuss with nephrology. (10) Ascites Current Visit: Yes Status: Chronic Plan: 3 L removed from paracentesis today. Analysis sent for evaluation of SBP. (11) Gallbladder sludge Current Visit: Yes Status: Chronic Plan: Continue with above plan of care. (12) Leukocytosis Onset Date: 10/08/16 Current Visit: No Status: Acute Plan: Continue with above plan of care Qualifiers: Leukocytosis type: unspecified Qualified Code(s): D72.829 - Elevated white blood cell count, unspecified Discharge Plan: Home Plan to discharge in: 72 Hours Time Spent Managing Pts Care (In Minutes): 55
--- NOTE | 2017-11-26 11:30 | RAD REPORT ---
EXAM DESCRIPTION: Ultrasound-guided paracentesis CLINICAL HISTORY: Ascites COMPARISON: 10/13/2017 FINDINGS: Informed consent was obtained and time-out was performed. Patient's abdomen was prepped and draped in the usual sterile fashion. 1% lidocaine was used for loca l anesthetic purposes. A small skin incision was made along the right aspect of the abdomen. A paracentesis catheter was terrence ded into the peroneal cavity under sonographic guidance. A small amount of fluid was sent for requested lab studies. Following this, a large volume paracentes is was performed. 3.2 liters of dark yellow fluid was obtained. The patient tolerated the procedure well. IMPRESSION: Successful ultrasound-guided paracentesis.
[2017-11-26 12:08] LABS: Body Fluid Source PERITONEAL
[2017-11-26 12:09] LABS: Appearance CLEAR (CLEAR); Color of fluid Yellow (COLORLESS)
[2017-11-26 12:12] LABS: Body Fluid WBC 1769 /mm^3
[2017-11-26] MEDS: ENOXAPARIN 30 MG/0.3 ML SQ SCH (17:00)
[2017-11-27] MEDS: HYDRALAZINE HCL 25 MG TABLET PO SCH ×4 (00:38→17:03)
--- NOTE | 2017-11-27 01:29 | PN ---
Date of Progress Note: 11/26/2017 Subjective: The patient status post paracentesis, managed to remove 3200. The patient is still febr ile. Physical Examination: Vital Signs: When I saw the patient, patient seen on dialysis. Blood pressure 144/67, pulse of 107. Afebrile. Chest: Clear to auscultation. Heart: S1, S2. Regular. Abdomen: Soft nontender. Ascites. Extremities: No edema. Laboratory Data: WBC 23.5, H and H 11.1/34.3, platelets 310. Sodium 127, potassium 3.8, bicarb 22. BUN 44, creatinine 4, calcium 8.5, magnesium of 2. Current Medications: The patient on include Lovenox, hydralazine 75 q.6, lisinopril 20, Levaquin 250 , metronidazole, and pantoprazole. Fluid: Fluid ascites has 1700 wbc's. Assessment And Plan: 1.End-stage renal disease. We will maintain the patient on dialysis. 2.Secondary hyperparathyroidism, stable. No need for binder. 3.Anemia of chronic kidney disease. Continue Epogen. To be on hold for the time being. 4.Hyponatremia secondary to cirrhosis and end-stage renal disease. Will be corrected on dialysis. The patient is going to be dialyzed on high sodium bath. 5.Leukocytosis. Peritonitis. The patient had already abdominal ultrasound and had CT back on the . At that time, there was no significant finding. I am going to go ahead and arrange for repeat C T of the abdomen to evaluate for any secondary peritonitis, given the poor recovery for the patient. Continue current antibiotic. We will follow up with ID. Follow up culture. I am going [facility] go ahead and [facility] to compare. 6.Poor mature arteriovenous fistula. We only managed to cannulate one needle. We will continue to follow up. Case discussed with the patient and with the dialysis nurse. MANJIT/TAMMIE Voice ID: [id number] Report ID: [id number]
[2017-11-27 06:44] LABS: Magnesium 1.9 mg/dL (1.8-2.5); Potassium 4.1 mEq/L (3.6-5.0)
[2017-11-27] MEDS: INSULIN -REGULAR HUMAN 50 UNIT/0.5 ML ML SQ SCH ×4 (07:56→21:00)
[2017-11-27] MEDS: DOXAZOSIN 2 MG TAB PO SCH ×2 (07:57→21:11)
[2017-11-27] MEDS: SERTRALINE HCL 100 MG TAB PO SCH (07:57)
[2017-11-27] MEDS: metroNIDAZOLE 500 MG TABLET PO SCH ×3 (07:57→21:11)
[2017-11-27] MEDS: LISINOPRIL 20 MG TAB PO SCH ×2 (07:57→21:11)
[2017-11-27] MEDS: levoFLOXacin 250 MG TAB PO SCH (07:57)
[2017-11-27] MEDS: PANTOPRAZOLE 40MG TABLET PO SCH ×2 (07:57→17:03)
[2017-11-27 11:12] LABS: Absolute Lymphocytes (CBC) 0.6 K/uL (0.7-4.9); Absolute Monocytes 1.3 K/uL (0.1-1.3); Absolute Neutrophil 16.2 K/uL (1.8-8.0); Basophils % 0.1 % (0-1.3); Eosinophils % 0.2 % (0-4.4); Hematocrit 33.3 % (36.0-45.0); Lymphocytes % 3.5 % (15.3-44.8); MCH 26.9 pg (27.0-35.0); MCV 84.3 fL (80-100); MPV 8.1 fL (7.6-11.3); RBC Red Blood Cell Count 3.95 M/uL (3.86-4.86)
[2017-11-27 12:10] LABS: Urine White Blood Cell Casts OK
[2017-11-27 12:11] LABS: Blood Morphology Comment NOTED (NOT SEEN); Platelet Estimate ADEQ; Platelets, Giant FEW; Target Cells FEW
--- NOTE | 2017-11-27 13:42 | PN ---
Date of Progress Note: 11/27/2017 Subjective: The patient seen and examined, chart reviewed, and case discussed with RN. The patient states, she is feeling better. Review of Systems: Negative except as above. Medications: Reviewed. Physical Examination: Vital Signs: Temperature 97.7, heart rate 113, blood pressure 138/63, respirations 16, and O2 97% on room air. General: Awake, alert, oriented x3, not in any acute distress. Somewhat ill-appearing female. CV: S1, S2. No murmurs. Peripheral pulses present. Respiratory: Moving air well bilaterally. No wheezing. Gastrointestinal: Abdomen is soft, nontender, nondistended. Positive bowel sounds. No guarding or rigidity. Extremities: No clubbing, cyanosis, edema. Neurologic: Nonfocal. Laboratory Data: Sodium 136, potassium 4.1, chloride 101, CO2 26, BUN 30, creatinine 2.98, glucose 3 08, calcium 8.5, and magnesium 1.9. WBC pending. Peritoneal fluid is clear. WBCs 1759, RBCs 4983, neutrophils 77%, and lymphocytes 17%. Repeat blood cultures pending. Initial first 2 sets of blood cultures are negative to date. C. diff negative. Fecal leukocytes does not show any WBCs. Ascites fluid culture, no WBCs or organisms seen. Final culture pending. Assessment And Plan: 1.Colitis, improved. Clostridium difficile is negative. WBC count continues to be elevated. Parac entesis was done yesterday, 3 L removed. Culture still pending, but no WBCs or organisms were seen. We will continue with IV antibiotics for now. The patient may need to have dialysis catheter remove d and cultured. We will discuss with ID. Nephrology and ID on board. Abdominal pain has improved. 2.Abdominal pain, left upper quadrant. Some gallbladder sludge. Surgery on board. No cholecystiti s. Improved. 3.Atrial fibrillation. The patient has history of atrial fibrillation, not on anticoagulation due t o risk of fall and bleeding. 4.Diabetes mellitus type 2 with long-term use of insulin. We will continue sliding scale. Continue Accu-Cheks. 5.End-stage renal disease, on hemodialysis Wednesday, Wednesday, and Wednesday. Nephrology on board. 6.Gastroesophageal reflux disease without esophagitis. 7.Depression with anxiety. Continue medication. 8.Hyperkalemia, corrected. 9.Hyponatremia, improving. 10.Ascites, status post paracentesis with 3 L removed. Doubt spontaneous bacterial peritonitis. Cu ltures pending. No WBCs or organisms seen. 11.Gallbladder sludge. Avoid fried fatty foods. 12.Leukocytosis, may need dialysis catheter removed and cultured. We will discuss further with Neph rology and ID. Plan: Follow up on repeat blood cultures. Continue IV antibiotics. SA/MODL Voice ID: [id number] Report ID: [id number]
[2017-11-27] MEDS: ENOXAPARIN 30 MG/0.3 ML SQ SCH (17:03)
--- NOTE | 2017-11-27 19:39 | PN ---
Date of Progress Note: 11/27/2017 Subjective: The patient doing well. No nausea. No vomiting. Afebrile. Physical Examination: Vital Signs: Blood pressure 124/59, pulse of 108, afebrile. Chest: Clear to auscultation. Heart: S1, S2 regular. Abdomen: Soft nontender, ascites. Extremities: No edema. Laboratory Data: WBC 18.2, H and H 10.6/33.3, and platelet 333. Sodium 136, potassium 4.1, bicarb 2 6, BUN 30, creatinine 2.9, and calcium 8.5. Medications: Current medications the patient on include; 1.Levaquin. 2.Metronidazole. 3.Heparin. 4.Doxazosin 2 mg b.i.d. 5.Hydralazine 75 q.6. 6.Lisinopril 20 b.i.d. 7.Loperamide. 8.Pantoprazole. Laboratory Data: Culture still pending. Assessment And Plan: 1.End-stage renal disease. We will maintain the patient on hemodialysis Wednesday, Wednesday, Wednesday. 2.Secondary hyperparathyroidism, stable. 3.Anemia. The patient to be continued on SHAYE. 4.Leukocytosis, peritonitis with colitis. Continue current antibiotic. We will follow up culture. 5.Non-matured arteriovenous fistula. We will continue cannulating one by one. If leukocytosis persists, we will go ahead and remove the catheter and try with laxmi mariscal MA/TAMMIE Voice ID: [id number] Report ID: [id number]
[2017-11-28] MEDS: HYDRALAZINE HCL 25 MG TABLET PO SCH ×4 (00:33→17:35)
[2017-11-28 06:07] LABS: Magnesium 1.9 mg/dL (1.8-2.5); Potassium 4.4 mEq/L (3.6-5.0)
[2017-11-28 06:42] LABS: Absolute Lymphocytes (CBC) 0.6 K/uL (0.7-4.9); Absolute Monocytes 1.1 K/uL (0.1-1.3); Absolute Neutrophil 14.8 K/uL (1.8-8.0); Basophils % 0.2 % (0-1.3); Eosinophils % 0.5 % (0-4.4); Hematocrit 34.6 % (36.0-45.0); Lymphocytes % 3.6 % (15.3-44.8); MCV 83.5 fL (80-100); MPV 8.5 fL (7.6-11.3); Monocytes % 6.5 % (3.3-12.3); RBC Red Blood Cell Count 4.14 M/uL (3.86-4.86)
[2017-11-28] MEDS: INSULIN -REGULAR HUMAN 50 UNIT/0.5 ML ML SQ SCH ×5 (08:22→20:32)
[2017-11-28] MEDS: DOXAZOSIN 2 MG TAB PO SCH ×2 (08:22→20:32)
[2017-11-28] MEDS: SERTRALINE HCL 100 MG TAB PO SCH (08:22)
[2017-11-28] MEDS: metroNIDAZOLE 500 MG TABLET PO SCH ×3 (08:22→20:32)
[2017-11-28] MEDS: levoFLOXacin 250 MG TAB PO SCH (08:22)
[2017-11-28] MEDS: PANTOPRAZOLE 40MG TABLET PO SCH ×2 (08:22→15:35)
[2017-11-28] MEDS: LISINOPRIL 20 MG TAB PO SCH ×2 (08:22→20:32)
[2017-11-28 09:10] LABS: Anisocytosis 1+; Blood Morphology Comment NOTED (NOT SEEN); Hypochromasia 1+; Macrocytosis 1+; Platelet Estimate ADEQ; Urine White Blood Cell Casts OK
[2017-11-28 09:11] LABS: Target Cells 1+
[2017-11-28] MEDS: VANCOMYCIN ORAL SOLN 250 MG/5 ML OSYR PO SCH ×2 (12:30→17:35)
--- NOTE | 2017-11-28 14:49 | P.PN ---
Subjective Date of Service: 11/28/17 Primary Care Provider: Nephrology-Dr. Ortiz Chief Complaint: Colitis Subjective: Improving (Patient is improving no new complaints eating and drinking some mild diarrhea Irish-speaking only) Review of Systems Unremarkable Physical Examination - Vital Signs Temperature: 95.9 F Blood Pressure: 137/64 Pulse: 101 Respirations: 16 Pulse Ox (%): 98 - Physical Exam General: Alert, Cooperative Respiratory: Clear to auscultation bilaterally Cardiovascular: No edema Gastrointestinal: Normal bowel sounds, Soft and benign - Studies Medications List Reviewed: Yes Assessment & Plan - Problems (Diagnosis) (1) Colitis Current Visit: Yes Status: Acute Plan: Patient is 57 years of intermittent nausea vomiting possible colitis all the cultures are negative C difficile has been ordered again patient is on dialysis and white count is improving multiple antibiotics p.o. via oral vancomycin was started today by Nephrology vital signs is stable on room is has a satisfactory patient is resuming 100% of her meals finding can be discharged tomorrow
[2017-11-28] MEDS: ENOXAPARIN 30 MG/0.3 ML SQ SCH (15:35)
[2017-11-29] MEDS: HYDRALAZINE HCL 25 MG TABLET PO SCH ×4 (00:05→17:12)
[2017-11-29] MEDS: VANCOMYCIN ORAL SOLN 250 MG/5 ML OSYR PO SCH ×4 (00:05→17:18)
--- NOTE | 2017-11-29 02:35 | PN ---
Date of Progress Note: 11/28/2017 Subjective: No event. The patient had no shortness of breath, but the patient had diarrhea 4 times today. Physical Examination: Vital Signs: Blood pressure of 150/69, pulse of 103. Chest: Clear to auscultation. Heart: S1, S2. Regular. Abdomen: Soft, mild tenderness. No guarding. Extremities: No edema. Laboratory Data: WBC 16.5, H and H 11.2/34.6, and platelets 371. Sodium 134, potassium 4.4, bicarb 23, BUN 42, creatinine 4, calcium 8.8, phos 4, and magnesium 1.9. Medications: Current medications the patient on include; 1.Levaquin. 2.Flagyl. 3.Heparin. 4.Hydralazine 75 q.6. 5.Lisinopril 20 b.i.d. 6.Loperamide. Assessment And Plan: 1.End-stage renal disease. Normal volume. Continue dialysis. I am going to go ahead and arrange f or dialysis tomorrow. 2.Hypertension, controlled, optimal. I am going to go ahead and continue to monitor. 3.Anemia of chronic kidney disease. Continue Epogen. 4.Diarrhea, colitis. We will add vancomycin oral. We will follow up. 5.Ascites, peritonitis, status post paracentesis. We will follow up with the primary. 6.Diabetes as by primary. 7.Hyponatremia, resolved. MANJIT/TAMMIE Voice ID: [id number] Report ID: [id number]
[2017-11-29] MEDS: INSULIN -REGULAR HUMAN 50 UNIT/0.5 ML ML SQ SCH ×4 (08:58→21:00)
[2017-11-29] MEDS: PANTOPRAZOLE 40MG TABLET PO SCH ×2 (08:59→17:10)
[2017-11-29] MEDS: SERTRALINE HCL 100 MG TAB PO SCH (08:59)
[2017-11-29] MEDS: DOXAZOSIN 2 MG TAB PO SCH ×2 (08:59→21:26)
[2017-11-29] MEDS: metroNIDAZOLE 500 MG TABLET PO SCH ×3 (09:04→21:26)
[2017-11-29] MEDS: LISINOPRIL 20 MG TAB PO SCH ×2 (09:04→21:26)
[2017-11-29] MEDS: levoFLOXacin 250 MG TAB PO SCH (09:04)
[2017-11-29] MEDS ORDERED: VANCOMYCIN 500 MG in NA CHLORIDE 0.9% 100 ML IVPB SCH (10:00)
--- NOTE | 2017-11-29 12:02 | PN ---
Date of Progress Note: 11/29/2017 Subjective: The patient is seen and examined, chart reviewed, and case discussed with RN. The patient still states she has some mild abdominal pain, continues to have diarrhea. No nausea or vomiting. Review of Systems: Negative except as above. Medications: Reviewed. Physical Examination: Vital Signs: Temperature 100.1, pulse 112, respirations 18, blood pressure 153/ 69, O2 96% on room air. General: Awake, alert, oriented x3, in some mild distress, appears older than stated age. CV: S1 and S2. No murmurs. Respiratory: Clear to auscultation bilaterally. No wheezing. Gastrointestinal: Abdomen is soft, mild distention, nontender. Bowel sounds positive. No rebound or guarding. Extremities: No clubbing, cyanosis, or edema. Neurologic: Nonfocal. Laboratory Data: Pending. Microbiology: Stool culture showing MRSA, sensitive to Levaquin. Assessment And Plan: A 57-year-old female with: 1. Colitis, improved. Clostridium difficile being repeated, currently pending. White count still elevated. The patient's stool culture does show methicillin-resistant Staphylococcus aureus and we will start on IV vancomycin. We will discuss with ID. The patient still spiking low-grade fevers, possible dialysis catheter infection. The patient is on p.o. vancomycin and Levaquin along with Flagyl. 2. Abdominal pain, left upper quadrant, improved. 3. Atrial fibrillation, not on anticoagulation due to risk of bleed from liver coagulopathy and fall. 4. Diabetes mellitus type 2 with long-term use of insulin with hyperglycemia. We will continue insulin sliding scale and also continue on Accu-Chek. 5. End-stage renal disease, on hemodialysis Wednesday, Wednesday, and Wednesday. Appreciate Nephrology input. 6. Gastroesophageal reflux disease without esophagitis. Continue PPI. 7. Depression with anxiety, stable. 8. Hyperkalemia, corrected. 9. Hyponatremia, improving. We will continue to monitor. 10. Ascites status post paracentesis, 3 L removed. SBP ruled out. Cultures negative. 11. Gallbladder sludge. Diet modification. 12. Leukocytosis may be secondary to MRSA in stool. We will discuss further with ID. Gastrointestinal and deep venous thrombosis prophylaxis addressed. /MODL Voice ID: [id number] Report ID: [id number] MTDD
[2017-11-29] MEDS: ENOXAPARIN 30 MG/0.3 ML SQ SCH (17:10)
[2017-11-29] MEDS: LACTOBACILLUS/ACIDOPHILUS TAB PO SCH (21:25)
--- NOTE | 2017-11-29 21:34 | PN ---
Subjective: Patient lying in bed. Had 3.2 L from her paracentesis pulled out. The patient denies a ny headache, nausea, vomiting, chest pain, or abdominal pain. Objective: Vital signs: Temperature 100, pulse 112, respiration 18, blood pressure 153/69. Lungs: Basal crackles. Heart: S1, S2. Regular. Abdomen: Soft. Bowel sounds present. Extremity: No edema. Laboratory Data: Shows WBC 21215 from yesterday, hemoglobin 11.2, platelets 371. Chemistry shows so dium 134, potassium 4.4, chloride 99, bicarb 23. BUN 42, creatinine 4. Glucose 219. WBC 1769 in pa racentesis and RBC 4983. Assessment And Plan: End-stage renal disease, leukocytosis, low-grade fever. The patient on Levaqui n and Flagyl and vancomycin. Continue current medication. We will follow the patient as needed. NF/MODL Voice ID: [id number] Report ID: [id number]
[2017-11-30] MEDS: HYDRALAZINE HCL 25 MG TABLET PO SCH ×4 (00:50→17:13)
--- NOTE | 2017-11-30 01:04 | PN ---
Date of Progress Note: 11/29/2017 Chief Complaint: End-stage renal disease. History Of Present Illness: The patient has history of end-stage renal disease , has been dialyzed 3 times per week. The patient is on po vancomycin for diarrhea and C diff colitis. The patient has history of ascites and underwent paracentesis. The patient was found to have hyponatremia. Sodium level is improving. The patient has hyponatremia due to volume overload. Dialysis today scheduled with ultrafiltration to control hypervolemia. Review of Systems: Diarrhea is gradually subsiding. Denies fever, chills, melena, hematemesis. Physical Examination: Vital Signs: Blood pressure 140/70, heart rate 105. Lungs: Clear to auscultation bilaterally. Heart: S1, S2. Abdomen: Soft, benign. No rebound. Extremities: Minimal edema. Laboratory Data: WBC 16.5, hemoglobin 11.2, sodium 134, potassium 4.4, bicarbonate 23, BUN 32, creatinine 4, calcium 8.8, phosphorus 4, magnesium 1.9. Impression And Plan: 1. End-stage renal disease. Dialysis is scheduled today with ultrafiltration. Continue low-sodium diet and p.o. fluid restriction to control volemia and control hyponatremia. 2. Hypertension. Blood pressure improved. Continue blood pressure medication. 3. Anemia of chronic kidney disease. Continue SHAYE. 4. Renal osteodystrophy. Phosphorus level is controlled. Continue current treatment with low phosphorus diet and binders. 5. Diabetes mellitus. Continue insulin. 6. Ascites status post paracentesis. Continue low-sodium diet and p.o. fluid restriction. PEDRO/MODL Voice ID: [id number] Report ID: [id number] TAMIA
[2017-11-30] MEDS: DOXAZOSIN 2 MG TAB PO SCH ×2 (08:29→20:48)
[2017-11-30] MEDS: INSULIN -REGULAR HUMAN 50 UNIT/0.5 ML ML SQ SCH ×4 (08:29→20:54)
[2017-11-30] MEDS: metroNIDAZOLE 500 MG TABLET PO SCH ×3 (08:30→20:47)
[2017-11-30] MEDS: LISINOPRIL 20 MG TAB PO SCH ×2 (08:30→20:46)
[2017-11-30] MEDS: PANTOPRAZOLE 40MG TABLET PO SCH ×2 (08:30→16:36)
[2017-11-30] MEDS: SERTRALINE HCL 100 MG TAB PO SCH (08:30)
[2017-11-30] MEDS: levoFLOXacin 250 MG TAB PO SCH (08:30)
[2017-11-30] MEDS: LACTOBACILLUS/ACIDOPHILUS TAB PO SCH ×2 (08:30→20:48)
--- NOTE | 2017-11-30 10:54 | PN ---
Date of Progress Note: 11/30/2017 Subjective: The patient with no complaints. No nausea. No vomiting. Physical Examination: Vital Signs: Blood pressure 154/72, pulse of 110, afebrile. Chest: Clear to auscultation. Heart: S1, S2. Systolic murmur. Abdomen: Soft, nontender. Extremities: No edema. Laboratory Data: WBC 16.5, H and H 11.2/34.6, platelets 371. Sodium 134, potassium 4.4, bicarb is 2 3, BUN 42, creatinine 4, calcium 8.8, magnesium 1.9. Medications: Current medications the patient on its include: 1.Levaquin. 2.Metronidazole. 3.Vancomycin IV after dialysis. 4.Lovenox. 5.Doxycycline. 6.Lisinopril 20 b.i.d. 7.Zoloft. 8.Pantoprazole. Assessment And Plan: 1.End-stage renal disease, normal volume. We will continue the patient on dialysis. 2.Hyperkalemia, resolved. 3.Hypertension, controlled, optimal. Continue current medication. 4.Anemia of chronic kidney disease. No need for SHAYE. 5.Peritonitis and colitis. Continue current antibiotic. Waiting for arrangement for vancomycin wit h dialysis. 6.Diabetes as by primary. The patient cleared from the Renal standpoint for discharge planning. MOSES Voice ID: [id number] Report ID: [id number]
--- NOTE | 2017-11-30 13:51 | PN ---
Date of Progress Note: 11/30/2017 Subjective: The patient is seen and examined, chart reviewed, and case discussed with RN and Dr. Asa giang. The patient's white count is better. She did have fever of 100.8 yesterday afternoon, currentl y afebrile. Denies any pain. Review of Systems: Negative except as above. Medications: Reviewed. Physical Examination: Vital Signs: Temperature 98.7, heart rate 110, blood pressure 154/72, respirations 17, O2 saturation 95% on room air. General: Awake, alert, oriented x3, not in any acute distress. Somewhat ill-appearing female. CV: S1, S2. Sinus tachycardia. No murmurs. Peripheral pulses present. Respiratory: Moving air well bilaterally. No wheezing. Gastrointestinal: Abdomen is soft. Mildly distended. Mild ascites. No guarding or rigidity. Bessie l sounds positive. Extremities: No clubbing, cyanosis, or edema. Neurologic: Nonfocal. Laboratory Data: Labs are pending. Stool culture shows MRSA. Blood cultures initial sent, negative final, repeat set no growth to date. Ascites culture shows no growth. Assessment And Plan: A 57-year-old female with: 1.Colitis, improved. Repeat Clostridium difficile is negative. Oral vancomycin has been discontinu ed. Stool culture does show methicillin-resistant Staphylococcus aureus and we will continue on IV v ancomycin. Case discussed with ID. The patient may need to be referred to LTAC for close monitoring and continued antibiotics. The patient is still tachycardic, had fever of 100.8 yesterday afternoon . Doubt dialysis catheter infection. There is a source of infection with the stool. 2.Left upper abdominal pain, improved. 3.Atrial fibrillation, paroxysmal, not on anticoagulation due to risk of bleed from liver coagulopat hy and fall. 4.Diabetes mellitus type 2 with long-term use of insulin with hyperglycemia. We will continue slidi ng scale insulin and continue Accu-Chek. 5.End-stage renal disease, on hemodialysis Wednesday, Wednesday, and Wednesday. Nephrology on board. 6.Gastroesophageal reflux disease without esophagitis. We will continue PPI. 7.Depression with anxiety, stable. 8.Hyperkalemia, corrected. 9.Hyponatremia. We will check sodium level. 10.Ascites status post paracentesis, 3 L removed. SBP ruled out. Cultures negative. 11.Leukocytosis. We will recheck CBC, likely secondary to methicillin-resistant Staphylococcus fariba us in stool. 12.Gastrointestinal and deep venous thrombosis prophylaxis with PPI and Lovenox renally dosed. /MODL Voice ID: [id number] Report ID: [id number]
[2017-11-30] MEDS: ENOXAPARIN 30 MG/0.3 ML SQ SCH (16:36)
[2017-11-30] MEDS: LOPERAMIDE HCL 2 MG CAPSULE PO PRN (20:48)
[2017-12-01] MEDS: HYDRALAZINE HCL 25 MG TABLET PO SCH ×4 (00:31→17:11)
[2017-12-01 00:58] VITALS: BMI 19.7
[2017-12-01 05:12] LABS: Absolute Lymphocytes (CBC) 0.7 K/uL (0.7-4.9); Basophils % 0.5 % (0-1.3); Eosinophils % 0.3 % (0-4.4); Hematocrit 32.9 % (36.0-45.0); Lymphocytes % 3.5 % (15.3-44.8); MCH 26.4 pg (27.0-35.0); MCV 83.6 fL (80-100); MPV 8.5 fL (7.6-11.3); RBC Red Blood Cell Count 3.93 M/uL (3.86-4.86)
[2017-12-01 05:32] LABS: Albumin 1.9 g/dL (3.2-5.5); Bilirubin Total 0.9 mg/dL (0.3-1.2); Protein, Total 5.7 g/dL (6.0-8.3)
[2017-12-01 06:16] LABS: Potassium 5.8 mEq/L (3.6-5.0)
[2017-12-01 07:20] LABS: Platelet Estimate ADEQ
[2017-12-01 07:25] LABS: Anisocytosis 1+; Blood Morphology Comment NOTED (NOT SEEN); Target Cells 1+
[2017-12-01] MEDS: INSULIN -REGULAR HUMAN 50 UNIT/0.5 ML ML SQ SCH ×4 (07:30→21:00)
[2017-12-01] MEDS: DOXAZOSIN 2 MG TAB PO SCH ×2 (09:00→22:00)
[2017-12-01] MEDS: LISINOPRIL 20 MG TAB PO SCH ×2 (09:00→22:00)
[2017-12-01] MEDS: PANTOPRAZOLE 40MG TABLET PO SCH ×2 (09:33→16:33)
[2017-12-01] MEDS: levoFLOXacin 250 MG TAB PO SCH (09:34)
[2017-12-01] MEDS: metroNIDAZOLE 500 MG TABLET PO SCH ×3 (09:34→21:59)
[2017-12-01] MEDS: SERTRALINE HCL 100 MG TAB PO SCH (09:34)
[2017-12-01] MEDS: LACTOBACILLUS/ACIDOPHILUS TAB PO SCH ×2 (09:34→22:01)
[2017-12-01] MEDS: ENOXAPARIN 30 MG/0.3 ML SQ SCH (16:37)
--- NOTE | 2017-12-01 20:04 | PN ---
Date of Progress Note: 12/01/2017 Subjective: The patient seen and examined. Chart reviewed and case discussed with RN and Dr. Reena gaines. The patient will need to have her Tesio catheter removed for culturing. The patient is going fo r dialysis today. No acute events overnight. Review of Systems: Negative except as above. Medications: Reviewed. Physical Examination: Vital Signs: Temperature 98.2, heart rate 107, blood pressure 164/80, respirations 16, O2 96% on rubén m air. General: Awake, alert, oriented x3. No acute distress. CV: S1, S2. No murmurs. Peripheral pulses present. Respiratory: Moving air well bilaterally. No wheezing. Gastrointestinal: Abdomen is soft. Mild distention. Mild ascites. No tenderness. Bowel sounds ar e positive. Extremities: No clubbing, cyanosis, or edema. Neurologic: Nonfocal. Laboratory Data: Sodium 128, potassium 5.8, chloride 97, CO2 21, BUN 40, creatinine 3.95, glucose 24 9, calcium 8.4, albumin 1.9. WBC 19.8, H and H 10.4, 32.9, platelets 462, neutrophils 90%. Stool cu ltures growing MRSA. A repeat blood cultures, no growth to date. C. diff assays negative. Assessment: A 57-year-old female with: 1.Acute colitis, improved. Stool culture showing methicillin-resistant Staphylococcus aureus. We w ill continue with IV vancomycin. Appreciate ID input. The patient has been afebrile. 2.Leukocytosis with neutrophilia, possible source of infection is dialysis catheter. We will have c atheter removed and cultured. 3.Left upper abdominal pain, improved. 4.Atrial fibrillation, paroxysmal. Lateral anticoagulation due to risk of bleed from liver coagulop athy. Fall risk. 5.Diabetes mellitus type 2 with long-term use of insulin with hyperglycemia. Continue sliding scale insulin. 6.End-stage renal disease, on hemodialysis. Appreciate Nephrology input. 7.Gastroesophageal reflux disease with esophagitis. We will continue PPI. 8.Depression with anxiety, stable. 9.Hyperkalemia, going for dialysis today. Counseled on diet intake. 10.Hyponatremia, trending down. We will continue to monitor fluid restriction. 11.Ascites status post paracentesis with 3 L removed. SBP ruled out. Cultures are negative. [facility] er, this is on antibiotics. 12.Gastrointestinal and deep venous thrombosis prophylaxis. PPI and Lovenox. Plan: Follow up on catheter tip cultures. We will continue IV antibiotics. Monitor closely. The p atient is still having elevated white count with neutrophilia. SA/MODL Voice ID: [id number] Report ID: [id number]
[2017-12-02] MEDS: HYDRALAZINE HCL 25 MG TABLET PO SCH ×4 (00:55→17:17)
[2017-12-02 05:18] LABS: Absolute Lymphocytes (CBC) 0.9 K/uL (0.7-4.9); Absolute Monocytes 1.1 K/uL (0.1-1.3); Absolute Neutrophil 17.5 K/uL (1.8-8.0); Basophils % 0.2 % (0-1.3); Eosinophils % 0.1 % (0-4.4); Hematocrit 32.5 % (36.0-45.0); Lymphocytes % 4.5 % (15.3-44.8); MCH 26.8 pg (27.0-35.0); MCV 82.6 fL (80-100); MPV 7.9 fL (7.6-11.3); Monocytes % 5.6 % (3.3-12.3); RBC Red Blood Cell Count 3.94 M/uL (3.86-4.86)
--- NOTE | 2017-12-02 05:51 | PN ---
Date of Progress Note: 12/01/2017 Subjective: The patient is feeling okay. The patient is seen on dialysis. Physical Examination: Vital Signs: When I saw the patient, blood pressure 141/65, pulse of 100, and afebrile. Chest: Clear to auscultation. Heart: S1, S2. Regular. Systolic murmur. Abdomen: Soft and nontender. Extremities: No edema. Laboratory Data: WBC 19.8, H and H 10.4/32.9. Sodium 128, potassium 5.8, bicarb 21, BUN 40, creatin ine 3.9, and calcium 8.4. Medications: Current medications the patient is on include; 1.Lovenox. 2.Hydralazine 75 t.i.d. 3.Lisinopril 20. 4.Metronidazole. 5.Vancomycin. 6.Zoloft. Culture is growing MRSA. Assessment And Plan: 1.End-stage renal disease. Normal volume. We will continue the patient on dialysis Wednesday, , and Wednesday. 2.Bacteremia, line infection, with persistent leukocytosis. We will remove the PermCath and give th e patient rest without any foreign body. Then, we will place temporary. The patient is going to nee d antibiotic in the meantime. We will consider long-term acute care. 3.Peritonitis. Continue antibiotic. 4.Urinary tract infection. Continue current treatment. MOSES Voice ID: [id number] Report ID: [id number]
[2017-12-02 06:00] LABS: Albumin 1.9 g/dL (3.2-5.5); Bilirubin Total 0.9 mg/dL (0.3-1.2); Potassium 5.3 mEq/L (3.6-5.0); Protein, Total 5.7 g/dL (6.0-8.3)
[2017-12-02] MEDS: INSULIN -REGULAR HUMAN 50 UNIT/0.5 ML ML SQ SCH ×4 (07:30→21:35)
[2017-12-02] MEDS: LISINOPRIL 20 MG TAB PO SCH ×2 (10:05→21:35)
[2017-12-02] MEDS: DOXAZOSIN 2 MG TAB PO SCH ×2 (10:05→21:37)
[2017-12-02] MEDS: PANTOPRAZOLE 40MG TABLET PO SCH ×2 (10:06→16:30)
[2017-12-02] MEDS: metroNIDAZOLE 500 MG TABLET PO SCH ×3 (10:06→21:37)
[2017-12-02] MEDS: levoFLOXacin 250 MG TAB PO SCH (10:06)
[2017-12-02] MEDS: SERTRALINE HCL 100 MG TAB PO SCH (10:06)
[2017-12-02] MEDS: LACTOBACILLUS/ACIDOPHILUS TAB PO SCH ×2 (10:06→21:35)
[2017-12-02] MEDS ORDERED: NA CHLORIDE 0.9% 1,000 ML ONE (11:13)
[2017-12-02] MEDS ORDERED: LIDOCAINE 1% MPF 5 ML VIAL ONE (11:37)
[2017-12-02] MEDS ORDERED: FENTANYL CITR 100 MCG/2 ML ONE (11:37)
[2017-12-02] MEDS ORDERED: MIDAZOLAM HCL 2 MG/2 ML INJ ONE (11:37)
[2017-12-02] MEDS ORDERED: PROPOFOL 200 MG/20 ML VIAL IV ONE (11:37)
[2017-12-02] MEDS ORDERED: BUPIVACA 0.25%/EPI 0.0005%/PF 30 ML VIAL ONE (11:56)
--- NOTE | 2017-12-02 12:24 | P.OP ---
Preoperative diagnosis: Infected Tunnelled LEFT subclavian HD catheter Postoperative diagnosis: Infected Tunnelled LEFT subclavian HD catheter Primary procedure: removal of Infected Tunnelled LEFT subclavian HD catheter Anesthesia: MAC + Local Estimated blood loss: <2cc Specimen: Catheter tip Findings: catheter removed intact Complications: None Transferred to: Recovery Room Condition: Good
--- NOTE | 2017-12-02 12:58 | CON ---
Date of Consultation: 12/02/2017 Brief History Of Present Illness: The patient is a 57-year-old, female, known to me from pr ior admissions, who was admitted with abdominal pain and diarrhea, who has a history significant for ESRD on hemodialysis. She has a left forearm fistula, which is being used for dialysis at this time. She is not having any abdominal pain and continued to have diarrhea, but no blood in it. She was s een by Dr. Page during her workup and ultimately her abdominal pain significantly improved. However , she continues to have significant elevation of her white blood cell count. There was concern for i nfection of her tunneled dialysis catheter in the left subclavian position. Therefore, I have been c onsulted to remove this. Past Medical History: Significant for ESRD on dialysis Wednesday, Wednesday, Wednesday, diabetes, cataract s, cholestatic, jaundice, diabetic gastroparesis, GERD, obesity, atrial fibrillation, pneumonia, pleu ral effusions, anemia, UTI. Past Surgical History: Includes tubal ligation, eye surgery, and I placed a tunneled hemodialysis ca theter on the left subclavian position. She has had a left forearm AV fistula placed as well. Family History: Significant for hypertension, diabetes. She denies alcohol or recreational drug use and smoking. Allergies: TO PENICILLIN. Home Medications: Include Cardura, Zoloft, calcium acetate, Sensipar, Nephro-Violet, Apresoline, NovoL og, Acidophilus, Protonix, Mylicon, Norvasc, PhosLo, Procrit, Prinivil, Levemir, Humalog, and vitamin B complex. Physical Examination: Vital Signs: At the time of my examination, her BMI is approximately 19.9. Her vital signs were a b lood pressure of 132/63, pulse is 118, respiratory rate 16, temperature 98.2. General: She is awake, alert, oriented. Psychiatric: She answers questions appropriately. HEENT: She is normocephalic. Her sclerae are anicteric. Her oropharynx is clear. Chest: Has normal expansion and excursion. She has a tunneled left hemodialysis catheter with no te nderness or collections in the area. Abdomen: Soft, nontender, nondistended. No rebound. No guarding. No peritonitis. She has a negat amado Power sign on exam. Extremities: She has a left forearm fistula, which she has been receiving dialysis through. Laboratory Data: Reveals a white blood count of 19.5, hemoglobin is 10.6, hematocrit 32.5, platelet count is 476. Her sodium is 133, potassium 5.3, chloride 102, carbon dioxide 24, BUN 28, creatinine is 3.16. Her glucose is 136. Her alkaline phosphatase is 712. She had a thoracentesis, paracentesi s on 11/26. Assessment And Plan: This is a 57-year-old female who has concern for possible infection. I have be en consulted to remove the tunneled hemodialysis catheter and sent it for culture. I have explained the risks, benefits, and alternatives of this plan to the patient. She agrees to proceed as indicate d. We will remove it today. Thank you for this interesting consult. ANNIKA Voice ID: [id number] Report ID: [id number]
[2017-12-02] MEDS ORDERED: SOD POLYSTYREN SUL 15 GM/60 ML UCUP PO ONE (13:00)
--- NOTE | 2017-12-02 15:34 | PN ---
Date of Progress Note: 12/02/2017 Subjective: The patient is seen and examined. Chart reviewed and case discussed with Dr. Escobar. The patient will be going for dialysis catheter removal today for culture. The patient otherwise den ies any other complaints. She states her diarrhea has improved. Review of Systems: Negative except as above. Medications: Reviewed. Physical Examination: Vital Signs: Temperature 98.2, heart rate 113, blood pressure 159/79, respirations 15, O2 97% on rubén m air. General: Awake, alert, oriented x3. Not in any acute distress. Slightly ill-appearing female, cach ectic. BMI 19. CV: S1, S2. No murmurs. Peripheral pulses present. Respiratory: Moving air well bilaterally. No wheezing. Gastrointestinal: Abdomen is soft. Mild ascites. Nondistended, nontender. Positive bowel sounds. Extremities: No clubbing, cyanosis, edema. Neurologic: Nonfocal. Laboratory Data: Sodium 133, potassium 5.3, chloride 102, CO2 of 23, BUN 28, creatinine 2.16, glucos e 138, calcium 8.7, albumin 1.9. WBC 19.5, H and H 10.6 and 32.5, platelets 476, neutrophils 89%. Re peat blood cultures negative to date. Final stool culture shows MRSA. Assessment And Plan: A 57-year-old female with: 1.Acute colitis, improving. Stool cultures growing out MRSA. We will continue with IV vancomycin a nd ID on the case. 2.Persistent leukocytosis with neutrophilia, possible source of infection is the dialysis catheter. Will be removed today and we will culture the tip. Follow up with culture results. 3.Left upper abdominal pain, resolved. 4.Atrial fibrillation, paroxysmal, not on any anticoagulation due to risk of bleed from liver coagul opathy and fall risk, currently in sinus rhythm. 5.Diabetes mellitus type 2 with long-term use of insulin with hyperglycemia. Continue sliding scale insulin. 6.End-stage renal disease on hemodialysis. Dr. Ruano on the case. 7.Gastroesophageal reflux disease without esophagitis. We will continue PPI. 8.Depression with anxiety, stable. 9.Hyperkalemia. Monitor and we will give Kayexalate. 10.Hyponatremia, improved. 11.Ascites status post paracentesis. SBP ruled out. Cultures are negative. 12.Gastrointestinal and deep venous thrombosis prophylaxis with PPI and Lovenox. Plan: Follow up on catheter tip culture was removed and cultured. The patient has persistent leukoc ytosis with neutrophilia. Discharge planning. ID recommending LTAC. We will discuss with social grisel muñiz. /TAMMIE Voice ID: [id number] Report ID: [id number]
[2017-12-02] MEDS: ENOXAPARIN 30 MG/0.3 ML SQ SCH (17:00)
[2017-12-02 23:35] VITALS: O2SAT 98
--- NOTE | 2017-12-03 00:13 | OP ---
Date of Procedure: 12/02/2017 Surgeon: Bernardino Escobar MD, Preoperative Diagnosis: Infected left tunneled hemodialysis catheter in the subclavian position. Postoperative Diagnosis: Infected left tunneled hemodialysis catheter in the subclavian position. Procedure Performed: Removal of infected tunneled left subclavian hemodialysis catheter. Anesthesia: MAC plus local, 0.25% Marcaine. Estimated Blood Loss: Less than 2 cc. Specimen: Catheter tip. Findings: Catheter removed intact. Complications: None. Disposition: Transferred to recovery room in good condition. Procedure In Detail: After informed consent was obtained, the patient was brought to the operating r oom, prepped and draped in the usual sterile fashion. After adequate anesthesia was achieved, I inci sed the skin over the left subclavian catheter at the exit site to ultimately expose the cuff. The c uff was then dissected circumferentially around using sharp and blunt dissection. After the cuff was completely exposed, I then placed the patient in steep Trendelenburg position, removed the catheter, held pressure, and placed the patient in head up position. We held pressure for 5 minutes by the cl ock. There was no additional bleeding at the site. The area was then copiously irrigated and dried. A single interrupted 3-0 nylon suture was placed in the insertion site of the catheter and a steril e dressing was placed over top. The patient tolerated the procedure well without evidence of complication and transferred back in good condition. All counts w ere correct at the end of the case. BLANKA/TAMMIE Voice ID: [id number] Report ID: [id number]
[2017-12-03] MEDS: HYDRALAZINE HCL 25 MG TABLET PO SCH ×3 (00:39→11:47)
--- NOTE | 2017-12-03 02:15 | PN ---
Date of Progress Note: 12/02/2017 Chief Complaint: End-stage renal disease, bacteremia, catheter infection, persistent leukocytosis, and hyperkalemia. History Of Present Illness: The patient has history of end-stage renal disease. She has been dialyzed via the tunneled dialysis catheter. The patient was found to have bacteremia, and today, she is scheduled to have catheter removal. The patient has left upper extremity AV fistula, although AV fistula is maturing. Plan is to cannulate AV fistula today and to treat hyperkalemia. The patient received dialysis yesterday. Potassium level predialysis was 5.8 yesterday and 5.3 today. The patient received dialysis today with 2 potassium dialysate. Hyponatremia, sodium level was 128 yesterday and the patient received dialysis with ultrafiltration to control fluid overload and treat hyponatremia secondary to fluid overload. Sodium level is 133 today. Review of Systems: Denies fever or chills. Denies nausea or vomiting. Physical Examination: Lungs: Clear to auscultation bilaterally. Heart: S1, S2. Abdomen: Soft, benign. Slight peripheral edema present. Laboratory Data: Sodium 153, potassium 5.3, chloride 102, CO2 23, BUN 28, creatinine 3.16, glucose 138, albumin 1.9, and glucose 163. Hematology showed WBC 19.5, hemoglobin 10.6, and platelet count 476,000. Microbiology test, catheter tip was obtained, and culture was obtained and pending. Impression: 1. Catheter infection and infected catheter was removed. Continue antibiotics pending catheter-tip culture. 2. Severe leukocytosis. The patient is treated with antibiotics, continue current treatment. 3. Anemia and chronic kidney disease, monitor hemoglobin level, adjust SHAYE. 4. Renal osteodystrophy, continue renal diet and binders. 5. Hyperkalemia, continue low-potassium diet. The patient received dialysis today with ultrafiltration to control electrolytes and provide metabolic clearance. Monitor daily electrolytes. I spent total 36 min including 26 min to coordinate care plan. PEDRO/TAMMIE Voice ID: [id number] Report ID: [id number] TAMIA
[2017-12-03 04:47] LABS: Absolute Lymphocytes (CBC) 0.6 K/uL (0.7-4.9); Absolute Monocytes 1.1 K/uL (0.1-1.3); Absolute Neutrophil 16.1 K/uL (1.8-8.0); Basophils % 0.1 % (0-1.3); Eosinophils % 0.2 % (0-4.4); Hematocrit 32.9 % (36.0-45.0); Lymphocytes % 3.3 % (15.3-44.8); MCH 26.5 pg (27.0-35.0); MCV 83.6 fL (80-100); MPV 8.3 fL (7.6-11.3); Monocytes % 6.2 % (3.3-12.3); RBC Red Blood Cell Count 3.93 M/uL (3.86-4.86)
[2017-12-03 05:13] LABS: Albumin 2.3 g/dL (3.2-5.5); Protein, Total 6.7 g/dL (6.0-8.3)
[2017-12-03] MEDS: INSULIN -REGULAR HUMAN 50 UNIT/0.5 ML ML SQ SCH ×3 (08:46→16:17)
[2017-12-03] MEDS: LACTOBACILLUS/ACIDOPHILUS TAB PO SCH (08:47)
[2017-12-03] MEDS: PANTOPRAZOLE 40MG TABLET PO SCH ×2 (08:47→16:17)
[2017-12-03] MEDS: metroNIDAZOLE 500 MG TABLET PO SCH (08:47)
[2017-12-03] MEDS: DOXAZOSIN 2 MG TAB PO SCH (08:47)
[2017-12-03] MEDS: SERTRALINE HCL 100 MG TAB PO SCH (08:48)
[2017-12-03] MEDS: levoFLOXacin 250 MG TAB PO SCH (08:48)
[2017-12-03] MEDS: LISINOPRIL 20 MG TAB PO SCH (08:48)
[2017-12-03 16:07] VITALS: BP 175/82; TEMP 98.3
--- NOTE | 2017-12-03 16:12 | PN ---
Date of Progress Note: 12/03/2017 Subjective: The patient seen and examined, chart reviewed and case discussed with RN and Dr. Escobar . The patient had dialysis catheter removed yesterday and cultured. The patient denies any signific ant pain. No acute events overnight. Review of Systems: Negative except as above. Medications: Reviewed. Physical Examination: Vital Signs: Temperature 97.2, heart rate 123, blood pressure 177/84, respirations 16, and O2 97% on room air. General: awake, alert, oriented x3, not in any acute distress, slightly ill appearing, cachectic fem otilio. BMI 20. CV: S1, S2. Sinus tachycardia. Peripheral pulses present. No murmurs. Respiratory: Moving air well bilaterally. No wheezing. Gastrointestinal: Abdomen is soft, nontender, nondistended. Mild ascites. Positive bowel sounds. Extremities: No clubbing, cyanosis, edema. Neurologic: Nonfocal. Laboratory Data: Sodium 138, potassium 4, chloride 105, CO2 26, BUN 26, creatinine 3.05, glucose 241 , calcium 9, albumin 2.3, and alkaline phosphatase 1186. WBC 17.8, H and H 10.4, 32.9, platelets 496 , and neutrophils 90%. Stool culture shows MRSA. Blood cultures negative. Catheter tip from left c hest, culture pending. Assessment: A 57-year-old female with; 1.Possible dialysis catheter infection, which has been now removed and being cultured. We will cont inue with broad-spectrum IV antibiotics. Appreciate Infectious Disease and Dr. Escobar's input. 2.Acute colitis, resolved. Stool culture growing methicillin resistant Staphylococcus aureus. Cont inue treatment. 3.Persistent leukocytosis with neutrophilia, likely secondary to methicillin resistant Staphylococcu s aureus infection versus possible dialysis catheter infection. 4.Left upper quadrant abdominal pain, resolved. 5.Atrial fibrillation, paroxysmal, not on anticoagulation secondary to liver coagulopathy. Fall ris k. Currently sinus tachycardia. 6.Diabetes mellitus type 2 with long-term use of insulin with hyperglycemia. We will continue slidi ng scale insulin. 7.End-stage renal disease, on hemodialysis. Nephrology on board. 8.Gastroesophageal reflux disease without esophagitis. Continue PPI. 9.Depression with anxiety, stable. 10.Hyponatremia, improving. 11.Ascites status post paracentesis, 3 L removed. Cultures negative. 12.Gastrointestinal and deep venous thrombosis prophylaxis with PPI and Lovenox renally dosed. Plan: LTAC referral to [facility]. Followup with catheter-tip culture. SA/MODL Voice ID: [id number] Report ID: [id number]
[2017-12-03] MEDS: ENOXAPARIN 30 MG/0.3 ML SQ SCH (16:17)
--- NOTE | 2017-12-03 20:21 | PN ---
Date of Progress Note: 12/03/2017 Chief Complaint: End-stage renal disease, bacteremia, catheter infection, persistent leukocytosis. Subjective: The patient had dialysis yesterday. AV fistula was cannulated and blood flow with dialy sis was 150. The patient received dialysis with 2 potassium dialysate to control hyperkalemia. Pota ssium level has improved. Fluid overload, mild. Control with dialysis. Review of Systems: Denies fever or chills. Objective: Lungs: Clear to auscultation bilaterally. Heart: S1 and S2. Abdomen: Soft and benign. Extremities: No edema. Laboratory Data: Hemoglobin is 10.4, WBC 17.8, platelet count 496,000. Chemistries show sodium 138, potassium 4.0, chloride 105, CO2 of 24, BUN 26, creatinine 3.05, calcium 9.0, albumin 2.3. Impression And Plan: 1.End-stage renal disease, next dialysis tomorrow. 2.Hypoalbuminemia, increase p.o. protein intake. 3.Bacteremia. Catheter tip culture pending. 4.Continue antibiotics with renally adjusted dose. 5.Anemia and chronic kidney disease. Monitor hemoglobin level, adjust SHAYE. 6.Renal osteodystrophy. Continue renal diet and binders. Monitor phosphorus level. EB/MODL Voice ID: [id number] Report ID: [id number]
--- NOTE | 2017-12-08 06:41 | DS ---
Date of Discharge: 12/03/2017 Consultants: Dr. Escobar with Surgery, Dr. Ortiz with Nephrology, and Dr. Bravo with ID. Procedures: On 12/02/2017, dialysis catheter removal. Admitting Diagnoses: 1.Cholecystitis. 2.End-stage renal disease with hemodialysis. 3.Hypertension. 4.Diabetes. 5.Atrial fibrillation. Discharge Diagnoses: 1.Acute cholecystitis, resolved. 2.Possible dialysis catheter infection, removed and cultured. 3.Acute colitis, resolved. 4.Persistent leukocytosis with neutrophilia, likely secondary to MRSA infection in stool. 5.Left upper quadrant abdominal pain, resolved. 6.Atrial fibrillation, paroxysmal. 7.Diabetes mellitus type 2 with long-term use of insulin with hyperglycemia. 8.End-stage renal disease, on hemodialysis. 9.Gastroesophageal reflux disease without esophagitis. 10.Depression and anxiety, stable. 11.Hyponatremia, improving. 12.Ascites status post paracentesis, 3 L removed, cultures negative. Hospital Course: The patient is a 57-year-old female on dialysis and multiple comorbidities who come s in with nausea, vomiting, and abdominal discomfort. CT scan showed possible cholecystitis. The pa tient was started on antibiotics and IV fluids, and cultures were also obtained. The patient's blood cultures remained negative. She was found to have MRSA grow out of the stool. The patient continue d to have leukocytosis with neutrophilia consistently; therefore, repeat blood cultures were done, wh ich also remained negative. ID was consulted. She also had some ascites, which was tapped. The pat ient has 3L removed via paracentesis, and cultures were obtained, those cultures also remained negati ve. The patient's C. diff assay was negative. Catheter tip was finally removed as a possible source of infection by Dr. Escobar and was also cultured, showed no growth. The patient was continued on I V antibiotics, which were adjusted. She did have some hyponatremia, which resolved. Her dialysis wa s continued by Nephrology, and her abdominal pain resolved. She did have elevated alkaline phosphata se level. The patient was referred to LTAC for continued IV antibiotics and close management. [facility]. The patient was oth erwise doing well. For physical exam findings, please see the progress note dictated on the day of discharge. Condition: Stable. Activity: As tolerated. Medications: Per medication reconciliation list. Followup: Follow up with primary care physician in 1 week. Follow up with surgeon, Dr. Page, per h is recommendation, follow up with ID, Dr. Bravo in 2 weeks. Follow up with hunting guide, Dr. Reena gaines in 2 weeks. Return to ER for worsening condition. Diet: Renal. Total time spent discharging the patient was 37 minutes. /TAMMIE Voice ID: [id number] Report ID: [id number]
== END 2017-12-03 17:07 | DRG 981 ==
LOC: SUPCPDRO 13:51 → ER 13:51 → ERHOLD 18:01 → 2ND 19:30
PROVIDERS: ADMIT Family Medicine; ATTEND Family Medicine
PROC: 5A1D70Z Performance of Urinary Filtration, Intermittent, Less than 6 Hours Per Day (ICD-10-PCS; 2017-11-22)
PROC: 5A1D70Z Performance of Urinary Filtration, Intermittent, Less than 6 Hours Per Day (ICD-10-PCS; 2017-11-24)
PROC: 0W9G3ZZ Drainage of Peritoneal Cavity, Percutaneous Approach (ICD-10-PCS; 2017-11-26)
PROC: 5A1D70Z Performance of Urinary Filtration, Intermittent, Less than 6 Hours Per Day (ICD-10-PCS; 2017-11-26)
PROC: 5A1D70Z Performance of Urinary Filtration, Intermittent, Less than 6 Hours Per Day (ICD-10-PCS; 2017-11-29)
PROC: 5A1D70Z Performance of Urinary Filtration, Intermittent, Less than 6 Hours Per Day (ICD-10-PCS; 2017-12-01)
PROC: 0JPT0WZ Removal of Totally Implantable Vascular Access Device from Trunk Subcutaneous Tissue and Fascia, Open Approach (ICD-10-PCS; 2017-12-02)
PROC: 5A1D70Z Performance of Urinary Filtration, Intermittent, Less than 6 Hours Per Day (ICD-10-PCS; 2017-12-02)
PROC: 05PY03Z Removal of Infusion Device from Upper Vein, Open Approach (ICD-10-PCS; principal; 2017-12-02 13:15)
DX: K81.0 Acute cholecystitis (principal); K65.9 Peritonitis, unspecified; N18.6 End stage renal disease; I12.0 Hypertensive chronic kidney disease with stage 5 chronic kidney disease or end stage renal disease; R18.8 Other ascites; E87.1 Hypo-osmolality and hyponatremia; N39.0 Urinary tract infection, site not specified; N25.81 Secondary hyperparathyroidism of renal origin; T80.218A Other infection due to central venous catheter, initial encounter; E11.22 Type 2 diabetes mellitus with diabetic chronic kidney disease; K52.9 Noninfective gastroenteritis and colitis, unspecified; I48.0 Paroxysmal atrial fibrillation; F41.8 Other specified anxiety disorders; E87.5 Hyperkalemia; D63.1 Anemia in chronic kidney disease; N25.0 Renal osteodystrophy; K21.9 Gastro-esophageal reflux disease without esophagitis; E66.9 Obesity, unspecified; Z99.2 Dependence on renal dialysis
CPT/HCPCS: 36415; 49083; 71045; 74176; 76705; 80048; 80053; 80076; 80202; 82962; 83690; 83735; 84145; 85025; 85027; 85610; 85730; 86704; 86706; 86803; 87040; 87045; 87046; 87070; 87077; 87186; 87340; 87493; 89050; 89055; 90935; 96365; 96367; 96375; 97163; 99285; C9113; G0257; J0696; J1650; J2250; J2405; J3010; J7030